=== PATIENT | male | born 1950 | race Hispanic/Latino ===

== ENCOUNTER 2024-08-09 17:20 | Inpatient (IN) | payer MEDICARE ==
[~2024-08-09] VITALS: Ht 180.3 cm; Wt 86.2 kg
--- NOTE | 2024-08-09 17:37 | ERN ---
ED Note History of Present Illness Stated Complaint: GENERALIZED WEAKNESS Chief Complaint: Weakness Time Seen by MD: 17:34 Time Seen by Midlevel: 17:35 Dictation: Mr. Salazar is a 74 year old gentleman with history of atrial fibrillation, pacemaker, hypertension, type II DM, anemia, cerebral palsy, and right sided weakness who presented to the Emergency Department this evening for evaluation of general body weakness. He just arrived by plane from [place] after his release from [employer]. He states he had been there x 20 months. He states that he has had > 100 pound weight loss. He states that he has been having melena, dizziness, fatigue, general weakness, and palpitations. He also reports lower extremity edema, shortness of breath, and itchy skin. He states that he has been receiving blood transfusions every 10-12 days (5 treatments). He states he has not yet seen any specialists and he does not know what is causing blood loss. He has not seen his PCP at [facility] in over 2 years. Allergies: Coded Allergies: No Known Drug Allergies (Unverified Allergy, Unknown, 08/09/24) Emergency Care DECAL MAKER: None Past Medical History Past Medical History: A-Fib, Anemia, Diabetes-Type II, Hypertension, Kidney Stone, Other (cerebral palsy) Surgical History: Pacer/AICD, Other (knee, foot) RN Note Reviewed/Agreed w/PFSH: Yes Review of System Dictation REVIEW OF SYSTEMS: CONSTITUTIONAL: Patient denies fevers, chills, or sweats Reports fatigue and general weakness. Reports > 100 lb weight loss in the past 20 months while incarcerated. EYES: Patient denies any visual symptoms. EARS, NOSE, AND THROAT: No difficulties with hearing. No symptoms of rhinitis or sore throat. CARDIOVASCULAR: Patient denies chest pains, orthopnea and paroxysmal nocturnal dyspnea. Reports rapid heart rate. Reports history of atrial fibrillation. Reports history of pacemaker. RESPIRATORY: No dyspnea on exertion, no wheezing or cough. GI: No nausea, vomiting, diarrhea, constipation, abdominal pain, hematochezia. Reports black stools. : No urinary hesitancy or dribbling. No nocturia or urinary frequency. No abnormal urethral discharge. MUSCULOSKELETAL: No myalgias or arthralgias. NEUROLOGIC: No chronic headaches, no seizures. Patient denies numbness, tingling or weakness. PSYCHIATRIC: Patient denies problems with mood disturbance. No problems with anxiety. ENDOCRINE: No excessive urination or excessive thirst. DERMATOLOGIC: Patient denies any rashes or skin changes. Initial Vital Sign VS Vital Signs Date Time Temp Pulse Resp B/P (MAP) Pulse Ox O2 Delivery O2 Flow Rate FiO2 08/09/24 17:23 98.1 70 16 141/72 100 Room Air* 0 21 Physical Exam Dictation Vital signs: Reviewed. Afebrile Constitutional: No acute distress. Non-toxic appearing. Pleasant. Family at bedside Head/Face: Normocephalic, atraumatic. Eyes: Periorbital areas with no swelling, redness, or edema. Lids and lashes are normal. Conjunctival injection is absent. Sclera anicteric. Pupils equal, round, reactive to light. ENT: Pinnas intact and no signs of trauma or erythema. Ear canals clear and no discharge. TMs no erythema. No nasal discharge or bleeding noted. Oropharynx with no exudate, redness, swelling, masses, exudates, or evidence of obstructio n. Uvula midline. Mucous membranes moist. Neck: Trachea midline, no masses palpated, and no cervical lymphadenopathy. No swelling. Supple, full range of motion. Chest/Axilla: No tenderness, no crepitus, no paradoxical movement, no retractions. Cardiovascular: Regular rate, regular rhythm, no murmur, no gallops. Symmetric pulses. 1+ edema bilateral lower extremities Respiratory: Respirations even and unlabored. Lung sounds clear; no wheezes, rales or rhonchi. Room air SpO2 98% Gastrointestinal: Inspection is normal. No distention is appreciated. Bowel sounds are normal. No mass or organomegaly . There is no tenderness. No rebound. No rigidity. No voluntary or involuntary guarding. No Odell's sign. Neurological: Normal speech, gross motor function intact, gross sensory function intact. Right-sided weakness per baseline. Musculoskeletal/Extremities: All extremities have full range of motion, no pain or tenderness on palpation. Symmetric pulses. Integumentary: Intact. Skin is , warm and dry. Cap refill less than 3 seconds. Results (Laboratory/Radiology) Laboratory/Radiology Laboratory Tests Test 08/09/24 17:55 08/09/24 18:14 White Blood Count 7.2 K/uL (4.8-10.8) Red Blood Count 2.90 MIL/uL (4.50-6.20) L Hemoglobin 7.9 g/dL (14.0-18.0) L Hematocrit 25.0 % (42-54) L Mean Corpuscular Volume 86.2 fL (79-99) Mean Corpuscular Hemoglobin 27.2 pg (27.0-33.0) Mean Corpuscular Hemoglobin Concent 31.6 g/dL (32.0-36.0) L Red Cell Distribution Width 16.3 % (11.0-15.5) H Platelet Count 219 K/uL (130-400) Mean Platelet Volume 9.9 fL (7.5-10.5) Immature Granulocyte % (Auto) 0.4 % (0-1) Neutrophils (%) (Auto) 70.0 % (40.0-77.0) Lymphocytes (%) (Auto) 18.8 % (21.0-51.0) L Monocytes (%) (Auto) 8.3 % (3.0-13.0) Eosinophils (%) (Auto) 2.1 % (0.0-8.0) Basophils (%) (Auto) 0.4 % (0.0-5.0) Neutrophils # (Auto) 5.0 K/uL (1.8-7.7) Lymphocytes # (Auto) 1.4 K/uL (1.0-4.8) Monocytes # (Auto) 0.6 K/uL (0.1-1.0) Eosinophils # (Auto) 0.15 K/uL (0.00-0.70) Basophils # (Auto) 0.03 K/uL (0.00-0.20) Absolute Immature Granulocyte (auto 0.03 K/uL (0-1) Nucleated Red Blood Cells 0.0 % (0.0-0.19) Reticulocyte Count (auto) 3.24382 % (0.42-2.23) H Immature Reticulocyte Fraction 27.20 % (0.18-0.48) H Prothrombin Time 12.2 SEC (9.6-11.6) H Prothromb Time International Ratio 1.17 (0.85-1.15) H Activated Partial Thromboplast Time 28.2 SEC (26.3-35.5) Sodium Level 141 mmol/L (136-145) Potassium Level 3.6 mmol/L (3.5-5.1) Chloride Level 105 mmol/L (101-111) Carbon Dioxide Level 27 mmol/L (21-32) Blood Urea Nitrogen 21 mg/dL (7-18) H Creatinine 1.2 mg/dL (0.5-1.3) Glomerular Filtration Rate Calc 63 mL/min (>90) Random Glucose 122 mg/dL (70-105) H Total Calcium 8.4 mg/dL (8.5-10.1) L Iron Level 27 mcg/dL (65-175) L Total Iron Binding Capacity 294 mcg/dL (250-450) Percent Iron Saturation 9.1 % (30-44) L Ferritin 36 ng/mL (30-400) Total Bilirubin 0.8 mg/dL (0.2-1.0) Aspartate Amino Transf (AST/SGOT) 12 U/L (10-37) Alanine Aminotransferase (ALT/SGPT) 8 U/L (12-78) L Alkaline Phosphatase 148 U/L (50-136) H Troponin I High Sensitivity 10 ng/L (4-75) B-Type Natriuretic Peptide 114 pg/mL (0-100) H Total Protein 7.5 g/dL (6.0-8.3) Albumin 2.7 g/dL (3.5-5.0) L Vitamin B12 Level 422 pg/mL (193-986) Stool Occult Blood POSITIVE (NEGATIVE) H Labs Reviewed?: Yes EKG Comment: EKG Interpretation: Time Reviewed: 1921 Ventricular rate: [69] bpm CA Interval: [] 196ms QRS duration: [147] ms No ST segment elevation or depression. Clinical impression: Ventricular paced rhythm EKG Reviewed and interpreted by Dr. Nany Nelson ED Course ED Course Orders Procedure Category Date Status Time 12 Lead Ekg Tracing- EKG 08/09/24 Complete Technical 17:36 Troponin I High LAB 08/09/24 Complete Sensitivity 17:36 Cbc With Differential LAB 08/09/24 Complete 17:36 Comprehensive LAB 08/09/24 Complete Metabolic Panel 17:36 Urinalysis Profile LAB 08/09/24 Logged 17:36 B-Type Natriuretic LAB 08/09/24 Complete Peptide 17:36 Type And Screen BBK 08/09/24 Complete 17:36 Saline Lock Iv CPOE 08/09/24 Transmitted 17:36 Pt And Ptt LAB 08/09/24 Complete 17:49 Anemia Panel LAB 08/09/24 Complete 17:49 Occult Blood Stool LAB 08/09/24 Complete Single Only 17:49 Pantoprazole 40mg Inj PHA 08/09/24 In Process (Protonix 40mg Inj 20:00 Current Medications Medications (Trade) Dose Ordered Sig/Tracy Route PRN Reason Start Time Stop Time Status Last Admin Dose Admin Pantoprazole Sodium (PROTonix 40MG INJ) 40 mg ONCE IVP 08/09/24 20:00 08/09/24 23:59 Vital Signs Date Time Temp Pulse Resp B/P (MAP) Pulse Ox O2 Delivery O2 Flow Rate FiO2 08/09/24 19:37 98.6 68 14 132/68 100 Room Air* 0 21 08/09/24 17:23 98.1 70 16 141/72 100 0 08/09/24 17:23 98.1 70 16 141/72 100 Room Air* 0 21 Uneventful ED course. Patient is pleasant and cooperative. He complains of dyspnea on exertion. Twelve lead EKG reflects a ventricular paced rhythm; rate 69. No acute ST-T changes. Laboratory findings as noted below. H/H 7.9/25, BUN 21, glucose 122, Ca 8.4, ALP 148, BNP 114, albumin 2.7, PT/PTT 12.2/1.17. Stool guaiac is positive. While in the ED he received dose Protonix. Findings were discussed with KEANU Lucas who accepts patient for admission to hospitalist group. Medical Decision Making MDM MDM: Differential diagnosis: Medical anemia, fluid volume overload, uncontrolled AFib, GIB Rationale: Tests considered and ordered secondary to shared decision making include: labs, ECG and radiology Previous outside records reviewed: Old ER visits. Risk of complication and/or morbidity or mortality of patient management: None Medications-Per medication reconciliation Need for hospitalization: Patient does meet criteria for hospitalization. Need for emergency major/minor surgery: No There are no social concerns with this patient. Prescription drug management Prescriptions will include symptomatic care Patient's prior external medical records from other ER visits were reviewed by me as indicated. Prior testing and results from previous visits were reviewed. Prior tests were taken into account with medical decision making and resource utilization, independent historian/historians were used to obtain complete med ica history. I independently interpreted the test that were performed, results were reviewed by me and considered findings on radiology if ordered. Medical management and examination interpretation discussions were had by me with other qualified healthcare professionals as indicated for the patient's care. DX & DISP Disposition: Inpatient Departure Impression: Primary Impression: Melena Additional Impressions: Symptomatic anemia, CHF (congestive heart failure) Condition: Stable Assign Patient to: Dr. Wilbert Kennedy Referrals: DILLON GUILLEN DO (PCP) RANDALL THOMAS NP August 09, 2024 17:37
[2024-08-09 18:07] LABS: BASOPHILS # (AUTO) 0.03 K/uL (0.00-0.20); BASOPHILS % (AUTO) 0.4 % (0.0-5.0); EOSINOPHILS # (AUTO) 0.15 K/uL (0.00-0.70); EOSINOPHILS % (AUTO) 2.1 % (0.0-8.0); IMMATURE GRANULOCYTE ABSOLUTE 0.03 K/uL (0-1); LYMPHOCYTES # (AUTO) 1.4 K/uL (1.0-4.8); LYMPHOCYTES % (AUTO) 18.8 % (21.0-51.0); MEAN CORPUSCULAR HEMOGLOBIN 27.2 pg (27.0-33.0); MEAN CORPUSCULAR HGB CONC 31.6 g/dL (32.0-36.0); MEAN CORPUSCULAR VOLUME 86.2 fL (79-99); MONOCYTES # (AUTO) 0.6 K/uL (0.1-1.0); MONOCYTES % (AUTO) 8.3 % (3.0-13.0); PLATELET COUNT (AUTO) 219 K/uL (130-400); RED CELL DISTRIBUTION WIDTH 16.3 % (11.0-15.5); WHITE BLOOD COUNT (AUTO) 7.2 K/uL (4.8-10.8)
[2024-08-09 18:10] LABS: RETICULOCYTE % (AUTO) 3.14 % (0.42-2.23)
[2024-08-09 18:16] LABS: CREATININE 1.2 mg/dL (0.5-1.3); POTASSIUM 3.6 mmol/L (3.5-5.1)
[2024-08-09 18:18] LABS: INR 1.17 (0.85-1.15); PROTHROMBIN TIME 12.2 SEC (9.6-11.6)
[2024-08-09 18:19] LABS: PARTIAL THROMBOPLASTIN TIME 28.2 SEC (26.3-35.5)
[2024-08-09 18:25] LABS: ALBUMIN 2.7 g/dL (3.5-5.0); BILIRUBIN,TOTAL 0.8 mg/dL (0.2-1.0); TOTAL PROTEIN, SERUM 7.5 g/dL (6.0-8.3)
[2024-08-09 18:48] LABS: % IRON SATURATION 9.1 % (30-44)
[2024-08-09 18:55] LABS: B-TYPE NATRIURETIC PEPTIDE 114 pg/mL (0-100)
--- NOTE | 2024-08-09 19:27 | EKG ---
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
--- NOTE | 2024-08-09 20:34 | HP ---
History of Present Illness Reason for Visit: weakness History of Present Illness Mr. Salazar is a 74-year-old male that was seen and examined today on 08/09/2024. Patient is a good historian of personal health patient's daughter Stacey is at bedside. Patient states that he came to the emergency department with a chief complaint of melena. Onset was three months ago. Patient thinks it is because of a remote ERCP that he had. Location is rectal. Duration is on and off. Character is described as black stool. Symptoms are aggravated with defecation. There was no alleviating factors. Patient reports associated weakness. Today in the emergency department hemoglobin 7.9, hematocrit 25.0, no urinalysis has been collected or sent to lab, stool sample was positive for occult blood. Emergency room physician recommended that patient be admitted with a diagnosis of GI bleed. Patient also relates that it was just discharged from a retirement in [place] and he had a colonoscopy two weeks ago and he was told he probably has cancer. Patient does not know what medications he was taking while he was in retirement. Past Medical History ADDITIONAL PAST MEDICAL HISTORY: [Atrial fibrillation, anemia, Diabetes mellitius type2, hypertension, cerebral palsy] SOCIAL HISTORY: [Negative for smoking, alcohol use, drug use. Patient is currently living with his daughter.] SURGICAL HISTORY: [AICD, left ankle surgery, ERCP] Review of Systems General: No Fever, No Chills, No Night Sweats, No Fatigue, No Malaise, No Appetite, No Other HEENT: No Head Aches, No Visual Changes, No Eye Pain, No Ear Pain, No Dysphasia, No Sinus Congestion, No Post Nasal Drip, No Sore Throat, No Other Pulmonary: No Dyspnea, No Cough, No Pleuritic Chest Pain, No Other Cardiovascular: No: Chest Pain, Palpitations, Orthopnea, Paroxysmal Noc. Dyspnea, Edema, Lt Headedness, Other Gastrointestinal: Melena; No: Nausea, Vomiting, Abdominal Pain, Diarrhea, Constipation, Hematochezia, Other Genitourinary: No Dysuria, No Frequency, No Incontinence, No Hematuria, No Retention, No Other Musculoskeletal: No: other, neck pain, shoulder pain, arm pain, back pain, hand pain, leg pain, foot pain Skin: No Urticaria, No Rash, No Other Neurological: Weakness; No: Numbness, Incoordination, Change in speech, Confusion, Seizures, Other Allergies: Coded Allergies: No Known Drug Allergies (Unverified Allergy, Unknown, 08/09/24) Exam Vital Signs Vital Signs Date Time Temp Pulse Resp B/P (MAP) Pulse Ox O2 Delivery O2 Flow Rate FiO2 08/09/24 19:37 98.6 68 14 132/68 100 Room Air* 0 21 General Appearance: Alert, Oriented X3, Cooperative, No acute distress HEENT: Atraumatic, EOMI Respiratory: Clear to auscultation, Normal air movement, NL respiratory effort Cardiovascular: Regular rate, Regular rhythm, Normal S1, Normal S2 Abdominal: Normal bowel sounds, Soft, No tenderness Extremities: Other (Positive weakness to bilateral lower extremities) Skin: Other (Left anterior tibial abrasion) Neuro: Normal speech, Strength at 5/5 X4 ext, Sensation intact, Cranial nerves 3-12 NL Psych/Mental Status: Mental status NL, Mood NL, Thoughts/Content NL Assessment/Plan ASSESSMENT: [ GI bleed, POA Normocytic anemia, POA Atrial fibrillation Diabetes mellitius type2 Hypertension Cerebral palsy] PLAN: [ Admit patient to medical floor as inpatient status. Place patient on telemetry monitoring. Patient will be followed by Gastroenterology Service. Protonix 40 mg IV times. Continue Protonix drip per hospital protocol. Sandostatin 50 mcg IV times. Sandostatin drip per hospital protocol. Keep patient NPO. Hemoglobin and hematocrit every 6 hours Check preprocedure labs, CBC, BMP, magnesium, phosphorus, PTT, UA, type and screen, EKG, CXR IV fluid maintenance therapy 0.9% NS at 100 mL/HR Consider resuming home medications once they have been reconciled For now, metoprolol 12.5 mg by mouth twice daily Administer metoprolol 5 mg IV every 5 minutes as needed for AFib RVR with heart rate greater than 120 beats per minute max three doses. Check iron panel, follow up with the results Check serum ferritin, follow up with the results Check LDH, reticulocyte count, peripheral smear, follow up with the results Monitor labs Transfuse packed red blood cells for hemoglobin less than 7 mg/dL Check hemoglobin A1c in a.m. Glucometer checks a.c. and HS 1800 ADA diet Humulin R sliding scale Hydralazine 10 mg IV every 4 hours for systolic blood pressure greater than 160 mmHg Fall precautions GI prophylaxis patient is on Protonix drip as mentioned above DVT prophylaxis, Grant's and SCDs avoid anticoagulation at this time due to GI bleed. ADVANCED CARE PLANNING 1. Which of the following were discussed? Hospice Care - Yes Therapeutic options - Yes Advance Directives - Yes -patient states he does not have any advance directives in place at this time, however his daughter can make decisions for him if he becomes unable. Other discussions - patient wishes to remain a full code at this time 2. Discussed with who? Patient 3. Voluntary nature of this service was explained to the patient? Yes 4. Amount of time spent - __ 16 minutes 5. Reviewed by Physician? (if this service was performed by NPP) Yes This document was generated in part using voice recognition software, occasional wrong word or sound alike substitutions may have occurred due to the inherent limitations of voice recognition software. Read the chart carefully and recognize using context, where the substitutions have occurred. Although every effort was made to edit the content, wallcovering hanger and typing errors may occur ATTESTATION BY PHYSICIAN I have seen and examined the patient. I reviewed the documentation, medical decision making, and treatment plan as noted by the mid-level provider above. I agree with the findings and plan of care. NIELS TANG [facility] August 09, 2024 20:34
[2024-08-09] MEDS: PANTOPrazole 40 MG/VIAL IVP SCH (20:56)
[2024-08-09] MEDS: 0.9%NACL 1000ML 1,000 ML IV SCH (20:56)
[2024-08-09] MEDS: octREOtide aceTATe 100 MCG/ML AMP IV ONE (20:56)
[2024-08-09] MEDS: octREOtide aceTATe 1,250 MCG in 0.9% NACL 250ML 250 ML IV SCH (21:18)
[2024-08-09] MEDS: PANTOPrazole 40MG INJ 80 MG in 0.9%NACL 100ML 100 ML IV SCH (21:18)
--- NOTE | 2024-08-09 21:30 | HMCIMG ---
PORTABLE CHEST RADIOGRAPH INDICATION: sob COMPARISON: 04/16/2016 FINDINGS: cilnical scientist leads overlie the field of view. Left sided single chamber pacer and continuous lead remain in customary position. Heart size is normal. The pulmonary vascularity and adriane appear normal. No abnormal pulmonary parenchymal opacity or consolidation identified. No significant pleural effusion noted. No pneumothorax detected. IMPRESSION: No radiographic evidence for any acute cardiopulmonary process.
[2024-08-09] MEDS ORDERED: PHARMACY COMMUNICATION MISC SCH (22:00)
[2024-08-09] MEDS ORDERED: ondanSETRON 4MG INJ IV PRN (22:00)
[2024-08-09] MEDS ORDERED: metoPROLOL tartRATE 1 MG/ML 5ML VIAL IV PRN (22:00)
[2024-08-09] MEDS ORDERED: hydrALAZine 20MG/ML VIAL IV PRN (22:00)
[2024-08-09] MEDS ORDERED: morPHINE 2 MG SYG IVP PRN (22:00)
[2024-08-09] MEDS ORDERED: acetaMINOPHEN 325 MG TAB PO PRN (22:00)
--- NOTE | 2024-08-09 22:29 | NUR ---
REPORT GIVEN TO NURSE HERNANDEZ
[2024-08-09 23:00] VITALS: O2SAT 100
[2024-08-10] VITALS (7 sets, daily range): BP systolic 102–161; BP diastolic 60–83; PULSE 69–74; RESP 17–20; TEMP 97.6–98.7; O2SAT 97–100
[2024-08-10] MEDS ORDERED: PoTASSium chl 10% ELIXIR 20MEQ 20 MEQ/15 ML UDCUP PO PRN (00:30)
[2024-08-10] MEDS ORDERED: PoTASSium chloRIDE 20MEQ/100ML 100 ML IV PRN (00:30)
[2024-08-10] MEDS ORDERED: MAGNESIUM 2GM PREMIX 50ML 50 ML IV PRN (00:30)
[2024-08-10 05:52] LABS: APPEARANCE,URINE CLEAR (CLEAR); BILIRUBIN,URINE NEGATIVE (NEGATIVE); COLOR,URINE YELLOW (YELLOW); GLUCOSE, URINE (UA) NEGATIVE (NEGATIVE); KETONES,URINE NEGATIVE (NEGATIVE); LEUKOCYTE ESTERASE ,URINE NEGATIVE Leu/uL (NEGATIVE); NITRATE,URINE NEGATIVE (NEGATIVE); OCCULT BLOOD,URINE NEGATIVE (NEGATIVE); PH,URINE 5.5 (5.0-8.0); PROTEIN,URINE 10 mg/dL (NEGATIVE)
[2024-08-10 05:59] LABS: ADD UA MICROSCOPIC NO
[2024-08-10 06:01] LABS: BACTERIA,URINE FEW /HPF (None Seen); MUCUS,URINE RARE LPF (None Seen); RBC,URINE 0-1 /HPF (0-1); SQUAMOUS EPITHELIAL CELL,UR RARE /HPF (0-2); WBC,URINE 0-1 /HPF (0-1)
[2024-08-10] MEDS: INSULIN humuLIN R 100 UNIT/ML 3ML SQ SCH (07:30)
[2024-08-10] MEDS ORDERED: COMPOUND IV REFRIGERATED 1 EACH IVSOLN MISC PRN (08:00)
[2024-08-10 08:03] LABS: BASOPHILS # (AUTO) 0.03 K/uL (0.00-0.20); BASOPHILS % (AUTO) 0.6 % (0.0-5.0); EOSINOPHILS # (AUTO) 0.12 K/uL (0.00-0.70); EOSINOPHILS % (AUTO) 2.4 % (0.0-8.0); HEMATOCRIT 25.2 % (42-54); IMMATURE GRANULOCYTE ABSOLUTE 0.02 K/uL (0-1); LYMPHOCYTES # (AUTO) 1.1 K/uL (1.0-4.8); LYMPHOCYTES % (AUTO) 21.3 % (21.0-51.0); MEAN CORPUSCULAR HEMOGLOBIN 26.5 pg (27.0-33.0); MEAN CORPUSCULAR HGB CONC 30.6 g/dL (32.0-36.0); MEAN CORPUSCULAR VOLUME 86.6 fL (79-99); MONOCYTES # (AUTO) 0.4 K/uL (0.1-1.0); MONOCYTES % (AUTO) 8.7 % (3.0-13.0); NEUTROPHILS # (AUTO) 3.3 K/uL (1.8-7.7); NEUTROPHILS % (AUTO) 66.6 % (40.0-77.0); PLATELET COUNT (AUTO) 184 K/uL (130-400); RED BLOOD CELL COUNT(AUTO) 2.91 MIL/uL (4.50-6.20)
[2024-08-10 08:19] LABS: CREATININE 1.1 mg/dL (0.5-1.3); MAGNESIUM 1.8 mg/dL (1.80-2.40); PHOSPHORUS 3.5 mg/dL (2.5-4.9); POTASSIUM 3.9 mmol/L (3.5-5.1)
[2024-08-10 09:01] LABS: HEMOGLOBIN A1C 5.2 % (4.0-6.0)
[2024-08-10] MEDS: metoPROLOL tartRATE 25 MG TAB PO SCH (10:06)
[2024-08-10 12:34] LABS: HEMATOCRIT 28.1 % (42-54)
--- NOTE | 2024-08-10 13:05 | NUR ---
DCP: INITIAL ASSESSMENT Patient was just released from senior care as per daughter. He will go live with his daughter, Rola Salazar. Patient has no home services. Patient does have a wheelchair at home. Patient needs help with ADLs and has not driven. His family will assist with transportation. PCP is Dr. Ayesha Sahu. Pharmacy is [facility] [address] in [place]. Patient voiced no safety concerns regarding returning home and states she has no difficulty with housing or buying food. DCP is home. Patient has no insurance or benefits. He was provided with community resources for post hospitalization follow up. Patient was also provided with Good RX card for prescriptions and educated on [facility] $4 medication program and [facility] $5 medication program. Patient is being assisted by [facility] for financial matters. Addendum: 08/10/24 at 1309 by DINA JORDAN SS Amended: Links added.
--- NOTE | 2024-08-10 17:28 | NUR ---
CALLED RESIDENTIAL IN [place], [place] TO TRY AND OBTAIN MEDICAL RECORDS FOR PATIENT. PER ANSWERING SERVICE, MEDICAL RECORDS ARE ONLY AVAILABLE MONDAY THROUGH MONDAY BEFORE 5PM. UNABLE TO OBTAIN MEDICATION OR MEDICAL RECORDS AT THIS TIME. Addendum: 08/10/24 at 1733 by LANI TANG RN RN [facility] PHONE NUMBER [id number] BY DAUGHTER AND CALLED WAS
[2024-08-10 18:05] LABS: HEMATOCRIT 27.7 % (42-54)
--- NOTE | 2024-08-10 18:35 | PN ---
[facility] PROGRESS NOTE Date of Service: August 10, 2024 Time of Service: 18:29 SUBJECTIVE: [ 74-year-old male that was seen and examined today on 08/09/2024. Patient is a good historian of personal health patient's daughter Stacey is at bedside. Patient states that he came to the emergency department with a chief complaint of melena. Onset was three months ago. Patient thinks it is because of a remote ERCP that he had. Location is rectal. Duration is on and off. Character is described as black stool. Symptoms are aggravated with defecation. There was no alleviating factors. Patient reports associated weakness. Today in the emergency department hemoglobin 7.9, hematocrit 25.0, no urinalysis has been collected or sent to lab, stool sample was positive for occult blood. Emergency room physician recommended that patient be admitted with a diagnosis of GI bleed. Patient also relates that it was just discharged from a [facility] in [place] and he had a colonoscopy two weeks ago and he was told he probably has cancer. Patient does not know what medications he was taking while he was in fci. 08/10/24 : Patient seen and examined along with RN. No new complaints. Pending formal GI consult plan for EGD today or tomorrow. Patient is currently on Protonix and Sandostatin drip. As per patient family he had a colonoscopy about three weeks back we will try to get the record. REVIEW OF SYSTEMS CONSTITUTIONAL: Denies fevers, chills, or night sweats. No unintentional weight loss reported. NEUROLOGICAL: Denies headache, amaurosis fugax, motor weakness, sensory deficit, vertigo/spinning sensation, gait abnormalities, or tremors. ENT: No hearing loss, otalgia, otorrhea, rhinitis, rhinorrhea, hoarseness, or sore throat. CARDIOVASCULAR: Denies any exertional angina, dyspnea on exertion, orthopnea, paroxysmal nocturnal dyspnea, palpitations, life-threatening arrhythmias, claudication. PULMONARY: Denies any shortness of breath, cough, phlegm/sputum, hemoptysis, pleuritic chest pain. SLEEP: Denies morning headaches, daytime somnolence or napping. Denies difficulty falling asleep, staying asleep, waking from sleep. Denies knowledge of snoring. GASTROINTESTINAL: Denies any type of dysphagia to either liquids or solids. Denies nausea, vomiting, pyrosis, early satiety, abdominal pain, diarrhea, constipation, or changes in stool consistency or caliber. Denies coffee-ground emesis, hematemesis, hematochezia, or melanotic stools. GENITOURINARY: Denies frequency, urgency, nocturia, hematuria or incontinence (Storage/Irritative symptoms.) Low urinary stream, straining to void, urinary intermittency or hesitancy, splitting of the voiding stream, terminal dribbling. ENDOCRINOLOGIC: Denies polyuria, polydipsia, polyphagia or heat/cold intolerances. HEMATOLOGIC: Denies thrombophilia/previous clots, or coagulopathy/bleeding disorders. ONCOLOGIC: Denies personal history of malignancy. DERMATOLOGIC: Denies rashes or pruritus. PSYCHIATRIC: Denies any suicidal or homicidal ideation. Denies hallucinations. PHYSICAL EXAM GENERAL APPEARANCE: The patient is awake, alert, and oriented, in no acute cardiopulmonary distress. NEUROLOGICAL: Cranial nerves II-XII grossly intact. Motor is 5/5 in bilateral upper and lower extremities proximal to distal. No sensory deficits. HEENT: Face is symmetric. Pupils are equal and reactive. Extraocular movements are intact. NECK: Supple. No JVD. No thyromegaly. No submental, submandibular, pre- /postauricular, occipital or supraclavicular lymphadenopathy. CHEST: Normal chest expansion. No Telemetry. LUNGS: Absence of any rales, rhonchi or any wheezing. CARDIOVASCULAR: Regular. S1 and S2 normal. No appreciable rubs, murmurs or gallops. ABDOMEN: Soft, nontender, and nondistended. There is no rebound, voluntary guarding, or rigidity. : Deferred. No Shaw. EXTREMITIES: Non-edematous and not cyanotic. No clubbing. Good capillary refill. SKIN: No skin breakdown. Vital Signs (last 8hr) Date Time Temp Pulse Resp B/P (MAP) Pulse Ox O2 Delivery O2 Flow Rate FiO2 08/10/24 16:00 98.4 74 18 134/66 100 Nasal Cannula 08/10/24 12:00 98.2 74 18 141/74 98 Room Air LABS: Laboratory: Test 08/10/24 17:57 08/10/24 15:56 08/10/24 07:40 08/10/24 05:29 Range/Units Hemoglobin 8.4 L 14.0-18.0 g/dL Hematocrit 27.7 L 42-54 % Whole Blood Glucose 102 70-110 MG/DL White Blood Count 5.0 # 4.8-10.8 K/uL Red Blood Count 2.91 L 4.50-6.20 MIL/uL Mean Corpuscular Volume 86.6 79-99 fL Mean Corpuscular Hemoglobin 26.5 L 27.0-33.0 pg Mean Corpuscular Hemoglobin Concent 30.6 L 32.0-36.0 g/dL Red Cell Distribution Width 16.0 H 11.0-15.5 % Platelet Count 184 130-400 K/uL Mean Platelet Volume 9.9 7.5-10.5 fL Immature Granulocyte % (Auto) 0.4 0-1 % Neutrophils (%) (Auto) 66.6 40.0-77.0 % Lymphocytes (%) (Auto) 21.3 21.0-51.0 % Monocytes (%) (Auto) 8.7 3.0-13.0 % Eosinophils (%) (Auto) 2.4 0.0-8.0 % Basophils (%) (Auto) 0.6 0.0-5.0 % Neutrophils # (Auto) 3.3 1.8-7.7 K/uL Lymphocytes # (Auto) 1.1 1.0-4.8 K/uL Monocytes # (Auto) 0.4 0.1-1.0 K/uL Eosinophils # (Auto) 0.12 0.00-0.70 K/uL Basophils # (Auto) 0.03 0.00-0.20 K/uL Absolute Immature Granulocyte (auto 0.02 0-1 K/uL Nucleated Red Blood Cells 0.0 0.0-0.19 % Red Blood Cell Morphology See comments Sodium Level 142 136-145 mmol/L Potassium Level 3.9 3.5-5.1 mmol/L Chloride Level 109 101-111 mmol/L Carbon Dioxide Level 25 21-32 mmol/L Blood Urea Nitrogen 19 H 7-18 mg/dL Creatinine 1.1 0.5-1.3 mg/dL Glomerular Filtration Rate Calc 70 >90 mL/min Random Glucose 112 H 70-105 mg/dL Hemoglobin A1c 5.2 4.0-6.0 % Estimated Average Glucose (eAG) 103 70-126 mg/dL Total Calcium 8.0 L 8.5-10.1 mg/dL Phosphorus Level 3.5 2.5-4.9 mg/dL Magnesium Level 1.80 1.80-2.40 mg/dL Lactate Dehydrogenase 103 81-234 U/L Urine Color YELLOW YELLOW Urine Appearance CLEAR CLEAR Urine pH 5.5 5.0-8.0 Urine Specific [place] 1.021 1.001-1.031 Urine Protein 10 H NEGATIVE mg/dL Urine Glucose (UA) NEGATIVE NEGATIVE mg/dL Urine Ketones NEGATIVE NEGATIVE mg/dL Urine Occult Blood NEGATIVE NEGATIVE Urine Nitrate NEGATIVE NEGATIVE Urine Bilirubin NEGATIVE NEGATIVE mg/dL Urine Urobilinogen 4.0 H 0.2-1.0 mg/dL Urine Leukocyte Esterase NEGATIVE NEGATIVE Bassam/uL Urine RBC 0-1 0-1 /HPF Urine WBC 0-1 0-1 /HPF Urine Squamous Epithelial Cells RARE 0-2 /HPF Urine Bacteria FEW None Seen /HPF Test 08/09/24 18:14 08/09/24 17:55 Range/Units Stool Occult Blood POSITIVE H NEGATIVE Reticulocyte Count (auto) 3.44371 H 0.42-2.23 % Immature Reticulocyte Fraction 27.20 H 0.18-0.48 % Prothrombin Time 12.2 H 9.6-11.6 SEC Prothromb Time International Ratio 1.17 H 0.85-1.15 Activated Partial Thromboplast Time 28.2 26.3-35.5 SEC Iron Level 27 L 65-175 mcg/dL Total Iron Binding Capacity 294 250-450 mcg/dL Percent Iron Saturation 9.1 L 30-44 % Ferritin 36 30-400 ng/mL Total Bilirubin 0.8 0.2-1.0 mg/dL Aspartate Amino Transf (AST/SGOT) 12 10-37 U/L Alanine Aminotransferase (ALT/SGPT) 8 L 12-78 U/L Alkaline Phosphatase 148 H 50-136 U/L Troponin I High Sensitivity 10 4-75 ng/L B-Type Natriuretic Peptide 114 H 0-100 pg/mL Total Protein 7.5 6.0-8.3 g/dL Albumin 2.7 L 3.5-5.0 g/dL Vitamin B12 Level 422 193-986 pg/mL Current Medications Medications (Trade) Dose Ordered Sig/Tracy Route PRN Reason Start Time Stop Time Status Last Admin Dose Admin Acetaminophen (TYLenol 325MG TAB) 650 mg Q6H PRN PO TEMPERATURE GREATER THAN 101.5 08/09/24 22:00 09/08/24 21:59 Hydralazine HCl (APRESOLine 20MG INJ) 10 mg Q6H PRN IV For:SBP above 160;DBP above 90 08/09/24 22:00 09/08/24 21:59 Insulin Human Regular (humuLIN R 100 UNIT/ML 3ML) INSULIN SLIDING SCAL... ACHS SQ 08/10/24 07:30 09/09/24 07:29 Magnesium Sulfate 50 ml @ 0 mls/hr PROTOCOL PRN IV h 08/10/24 00:30 09/09/24 00:29 Metoprolol Tartrate (loprESSOR) 5 mg Q5M PRN IV AFIB RVR > 120 BPM 08/09/24 22:00 Metoprolol Tartrate (loprESSOR) 12.5 mg BID PO 08/10/24 09:00 09/09/24 08:59 08/10/24 10:06 12.5 MG Morphine Sulfate (morPHINE 2MG SYG) 2 mg Q4H PRN IVP SEVERE PAIN (7-10) 08/09/24 22:00 08/16/24 21:59 Octreotide Acetate 1250 mcg/ Sodium Chloride 250 ml @ 0 mls/hr PROTOCOL IV 08/09/24 20:30 09/08/24 20:29 08/09/24 21:18 5 MLS/HR Ondansetron HCl (zoFRAN 4MG INJ) 4 mg Q6H PRN IV NAUSEA/VOMITING 08/09/24 22:00 09/08/24 21:59 Pantoprazole Sodium (PROTonix 40MG INJ) 40 mg ONCE IVP 08/09/24 20:00 08/09/24 23:59 DC 08/09/24 20:56 40 MG Pantoprazole Sodium 80 mg/ Sodium Chloride 100 ml @ 10 mls/hr Q10H IV 08/09/24 20:30 09/08/24 20:29 08/10/24 16:58 10 MLS/HR Pharmacy Profile Note (Pharmacy Communication) 1 each ONCE MISC 08/09/24 22:00 08/10/24 11:33 DC Potassium Chloride 100 ml @ 100 mls/hr AD PRN IV POTASSIUM PROTOCOL 08/10/24 00:30 09/09/24 00:29 Potassium Chloride (K-Dur/Klor-Con 20meq) 20 meq AD PRN PO POTASSIUM PROTOCOL 08/10/24 00:30 09/09/24 00:29 Potassium Chloride (KCl 10% Elixir 20meq/15ml) 20 meq AD PRN PO POTASSIUM PROTOCOL 08/10/24 00:30 09/09/24 00:29 Sodium Chloride 1,000 ml @ 100 mls/hr Q10H IV 08/09/24 20:30 09/08/24 20:29 08/10/24 16:59 100 MLS/HR DIAGNOSTICS / RADIOLOGY: [ ] ASSESSMENT: [ GI bleed, POA Normocytic anemia, POA Atrial fibrillation poa Diabetes mellitius type2 Hypertension Cerebral palsy] PLAN: [ Continue Protonix and Sandostatin drip. We will get imaging of CT abdomen and pelvis with and without contrast as per patient patient was told that he has cancer was not sure. We will get record from the hospital where he had the colonoscopy. Follow GI consult. Keep patient NPO. Hemoglobin and hematocrit every 6 hours Check preprocedure labs, CBC, BMP, magnesium, phosphorus, PTT, UA, type and screen, EKG, CXR IV fluid maintenance therapy 0.9% NS at 100 mL/HR Consider resuming home medications once they have been reconciled For now, metoprolol 12.5 mg by mouth twice daily Administer metoprolol 5 mg IV every 5 minutes as needed for AFib RVR with heart rate greater than 120 beats per minute max three doses. Check iron panel, follow up with the results ] ROGE HER MD August 10, 2024 18:35
[2024-08-10] MEDS ORDERED: IOHEXOL-350 75 ML VIAL IV ONE (18:42)
--- NOTE | 2024-08-10 19:17 | HMCIMG ---
CT ABDOMEN/PELVIS W/WO CONTRAS HISTORY: Abdominal pain COMPARISON: None TECHNIQUE: Multiple sequential axial images of the abdomen and pelvis were obtained from the dome of the diaphragm through symphysis pubis. Patient was not given contrast through intravenous route. Oral contrast was not given. FINDINGS: No pleural effusion is seen bilaterally. There is no evidence of parenchymal disease or pulmonary nodule of the visualized lower lungs. Degenerative changes of the thoracolumbar spine are present. The heart is not enlarged. There is periumbilical hernia with fat content. There is left ovarian cyst measuring 5.4 cm. The liver, spleen, adrenal glands and pancreas are unremarkable. There is no evidence of hydronephrosis bilaterally. No evidence of renal stone is seen. Fecal material is seen in the colon. There are normal size retroperitoneal and mesenteric lymph nodes. No ascites is seen. Atherosclerotic changes are present. Appendix is not well seen in the evaluation. There is diverticulosis. Pelvic sidewalls are symmetric bilaterally. Bladder is well distended without wall thickening. IMPRESSION: 1. Periumbilical hernia with fat content. No ascites. Left renal cyst measuring 5.[address] was performed with one or more following dose reduction techniques: automated exposure control, adjustment of the mA and kv according to patient's size, or use of a iterative reconstruction technique.
[2024-08-11] VITALS (7 sets, daily range): BP systolic 115–150; BP diastolic 57–83; PULSE 70–73; RESP 16–19; TEMP 97.6–98.6; O2SAT 70–100
[2024-08-11 00:59] LABS: HEMATOCRIT 24.6 % (42-54)
[2024-08-11 04:17] LABS: BASOPHILS # (AUTO) 0.04 K/uL (0.00-0.20); BASOPHILS % (AUTO) 0.7 % (0.0-5.0); EOSINOPHILS # (AUTO) 0.18 K/uL (0.00-0.70); EOSINOPHILS % (AUTO) 3.1 % (0.0-8.0); HEMATOCRIT 24.2 % (42-54); IMMATURE GRANULOCYTE ABSOLUTE 0.01 K/uL (0-1); LYMPHOCYTES # (AUTO) 1.1 K/uL (1.0-4.8); LYMPHOCYTES % (AUTO) 17.9 % (21.0-51.0); MEAN CORPUSCULAR HEMOGLOBIN 26.6 pg (27.0-33.0); MEAN CORPUSCULAR HGB CONC 30.6 g/dL (32.0-36.0); MEAN CORPUSCULAR VOLUME 87.1 fL (79-99); MONOCYTES # (AUTO) 0.5 K/uL (0.1-1.0); MONOCYTES % (AUTO) 8.4 % (3.0-13.0); NEUTROPHILS # (AUTO) 4.1 K/uL (1.8-7.7); NEUTROPHILS % (AUTO) 69.7 % (40.0-77.0); PLATELET COUNT (AUTO) 200 K/uL (130-400); RED BLOOD CELL COUNT(AUTO) 2.78 MIL/uL (4.50-6.20); RED CELL DISTRIBUTION WIDTH 16.1 % (11.0-15.5); WHITE BLOOD COUNT (AUTO) 5.9 K/uL (4.8-10.8)
[2024-08-11 04:29] LABS: ALBUMIN 2.2 g/dL (3.5-5.0); CREATININE 1.1 mg/dL (0.5-1.3); POTASSIUM 3.9 mmol/L (3.5-5.1); TOTAL PROTEIN, SERUM 6.4 g/dL (6.0-8.3)
[2024-08-11] MEDS: IRON sUCROse COMPLEX 300 MG in 0.9% NACL 250ML 250 ML IV ONE (12:24)
--- NOTE | 2024-08-11 13:18 | PN ---
[facility] PROGRESS NOTE Date of Service: August 11, 2024 Time of Service: 13:14 SUBJECTIVE: [ 74-year-old male that was seen and examined today on 08/09/2024. Patient is a good historian of personal health patient's daughter Stacey is at bedside. Patient states that he came to the emergency department with a chief complaint of melena. Onset was three months ago. Patient thinks it is because of a remote ERCP that he had. Location is rectal. Duration is on and off. Character is described as black stool. Symptoms are aggravated with defecation. There was no alleviating factors. Patient reports associated weakness. Today in the emergency department hemoglobin 7.9, hematocrit 25.0, no urinalysis has been collected or sent to lab, stool sample was positive for occult blood. Emergency room physician recommended that patient be admitted with a diagnosis of GI bleed. Patient also relates that it was just discharged from a alf in [place] and he had a colonoscopy two weeks ago and he was told he probably has cancer. Patient does not know what medications he was taking while he was in alf. 08/10/24 : Patient seen and examined along with RN. No new complaints. Pending formal GI consult plan for EGD today or tomorrow. Patient is currently on Protonix and Sandostatin drip. As per patient family he had a colonoscopy about three weeks back we will try to get the record. 08/11/2024. Patient was seen and examined along with RN. I was informed by the nursing staff that patient will not be getting EGD today. Transfer saturation shows 9% we will give IV Venofer. Patient continues to have black tarry stool. CT scan of the abdomen reviewed no signs of any mass or metastatic disease showing on the periumbilical hernia REVIEW OF SYSTEMS CONSTITUTIONAL: Denies fevers, chills, or night sweats. No unintentional weight loss reported. NEUROLOGICAL: Denies headache, amaurosis fugax, motor weakness, sensory deficit, vertigo/spinning sensation, gait abnormalities, or tremors. ENT: No hearing loss, otalgia, otorrhea, rhinitis, rhinorrhea, hoarseness, or sore throat. CARDIOVASCULAR: Denies any exertional angina, dyspnea on exertion, orthopnea, paroxysmal nocturnal dyspnea, palpitations, life-threatening arrhythmias, claudication. PULMONARY: Denies any shortness of breath, cough, phlegm/sputum, hemoptysis, pleuritic chest pain. SLEEP: Denies morning headaches, daytime somnolence or napping. Denies difficulty falling asleep, staying asleep, waking from sleep. Denies knowledge of snoring. GASTROINTESTINAL: Denies any type of dysphagia to either liquids or solids. Denies nausea, vomiting, pyrosis, early satiety, abdominal pain, diarrhea, constipation, or changes in stool consistency or caliber. Denies coffee-ground emesis, hematemesis, hematochezia, or melanotic stools. GENITOURINARY: Denies frequency, urgency, nocturia, hematuria or incontinence (Storage/Irritative symptoms.) Low urinary stream, straining to void, urinary intermittency or hesitancy, splitting of the voiding stream, terminal dribbling. ENDOCRINOLOGIC: Denies polyuria, polydipsia, polyphagia or heat/cold intolerances. HEMATOLOGIC: Denies thrombophilia/previous clots, or coagulopathy/bleeding disorders. ONCOLOGIC: Denies personal history of malignancy. DERMATOLOGIC: Denies rashes or pruritus. PSYCHIATRIC: Denies any suicidal or homicidal ideation. Denies hallucinations. PHYSICAL EXAM GENERAL APPEARANCE: The patient is awake, alert, and oriented, in no acute cardiopulmonary distress. NEUROLOGICAL: Cranial nerves II-XII grossly intact. Motor is 5/5 in bilateral upper and lower extremities proximal to distal. No sensory deficits. HEENT: Face is symmetric. Pupils are equal and reactive. Extraocular movements are intact. NECK: Supple. No JVD. No thyromegaly. No submental, submandibular, pre- /postauricular, occipital or supraclavicular lymphadenopathy. CHEST: Normal chest expansion. No Telemetry. LUNGS: Absence of any rales, rhonchi or any wheezing. CARDIOVASCULAR: Regular. S1 and S2 normal. No appreciable rubs, murmurs or gallops. ABDOMEN: Soft, nontender, and nondistended. There is no rebound, voluntary guarding, or rigidity. : Deferred. No Shaw. EXTREMITIES: Non-edematous and not cyanotic. No clubbing. Good capillary refill. SKIN: No skin breakdown. Vital Signs (last 8hr) Date Time Temp Pulse Resp B/P (MAP) Pulse Ox O2 Delivery O2 Flow Rate FiO2 08/11/24 11:55 98.2 73 16 150/75 99 Room Air 08/11/24 07:43 97.7 70 17 115/58 100 Room Air LABS: Laboratory: Test 08/11/24 05:31 08/11/24 03:41 08/10/24 07:40 08/10/24 05:29 Range/Units Whole Blood Glucose 94 70-110 MG/DL White Blood Count 5.9 4.8-10.8 K/uL Red Blood Count 2.78 L 4.50-6.20 MIL/uL Hemoglobin 7.4 L 14.0-18.0 g/dL Hematocrit 24.2 L 42-54 % Mean Corpuscular Volume 87.1 79-99 fL Mean Corpuscular Hemoglobin 26.6 L 27.0-33.0 pg Mean Corpuscular Hemoglobin Concent 30.6 L 32.0-36.0 g/dL Red Cell Distribution Width 16.1 H 11.0-15.5 % Platelet Count 200 130-400 K/uL Mean Platelet Volume 10.0 7.5-10.5 fL Immature Granulocyte % (Auto) 0.2 0-1 % Neutrophils (%) (Auto) 69.7 40.0-77.0 % Lymphocytes (%) (Auto) 17.9 L 21.0-51.0 % Monocytes (%) (Auto) 8.4 3.0-13.0 % Eosinophils (%) (Auto) 3.1 0.0-8.0 % Basophils (%) (Auto) 0.7 0.0-5.0 % Neutrophils # (Auto) 4.1 1.8-7.7 K/uL Lymphocytes # (Auto) 1.1 1.0-4.8 K/uL Monocytes # (Auto) 0.5 0.1-1.0 K/uL Eosinophils # (Auto) 0.18 0.00-0.70 K/uL Basophils # (Auto) 0.04 0.00-0.20 K/uL Absolute Immature Granulocyte (auto 0.01 0-1 K/uL Nucleated Red Blood Cells 0.0 0.0-0.19 % Sodium Level 144 136-145 mmol/L Potassium Level 3.9 3.5-5.1 mmol/L Chloride Level 111 101-111 mmol/L Carbon Dioxide Level 22 21-32 mmol/L Blood Urea Nitrogen 18 7-18 mg/dL Creatinine 1.1 0.5-1.3 mg/dL Glomerular Filtration Rate Calc 70 >90 mL/min Random Glucose 102 70-105 mg/dL Total Calcium 7.7 L 8.5-10.1 mg/dL Total Bilirubin 1.0 0.2-1.0 mg/dL Aspartate Amino Transf (AST/SGOT) 12 10-37 U/L Alanine Aminotransferase (ALT/SGPT) 3 L 12-78 U/L Alkaline Phosphatase 121 50-136 U/L Total Protein 6.4 6.0-8.3 g/dL Albumin 2.2 L 3.5-5.0 g/dL Red Blood Cell Morphology See comments Hemoglobin A1c 5.2 4.0-6.0 % Estimated Average Glucose (eAG) 103 70-126 mg/dL Phosphorus Level 3.5 2.5-4.9 mg/dL Magnesium Level 1.80 1.80-2.40 mg/dL Lactate Dehydrogenase 103 81-234 U/L Urine Color YELLOW YELLOW Urine Appearance CLEAR CLEAR Urine pH 5.5 5.0-8.0 Urine Specific [place] 1.021 1.001-1.031 Urine Protein 10 H NEGATIVE mg/dL Urine Glucose (UA) NEGATIVE NEGATIVE mg/dL Urine Ketones NEGATIVE NEGATIVE mg/dL Urine Occult Blood NEGATIVE NEGATIVE Urine Nitrate NEGATIVE NEGATIVE Urine Bilirubin NEGATIVE NEGATIVE mg/dL Urine Urobilinogen 4.0 H 0.2-1.0 mg/dL Urine Leukocyte Esterase NEGATIVE NEGATIVE Bassam/uL Urine RBC 0-1 0-1 /HPF Urine WBC 0-1 0-1 /HPF Urine Squamous Epithelial Cells RARE 0-2 /HPF Urine Bacteria FEW None Seen /HPF Test 08/09/24 18:14 08/09/24 17:55 Range/Units Stool Occult Blood POSITIVE H NEGATIVE Reticulocyte Count (auto) 3.08912 H 0.42-2.23 % Immature Reticulocyte Fraction 27.20 H 0.18-0.48 % Prothrombin Time 12.2 H 9.6-11.6 SEC Prothromb Time International Ratio 1.17 H 0.85-1.15 Activated Partial Thromboplast Time 28.2 26.3-35.5 SEC Iron Level 27 L 65-175 mcg/dL Total Iron Binding Capacity 294 250-450 mcg/dL Percent Iron Saturation 9.1 L 30-44 % Ferritin 36 30-400 ng/mL Troponin I High Sensitivity 10 4-75 ng/L B-Type Natriuretic Peptide 114 H 0-100 pg/mL Vitamin B12 Level 422 193-986 pg/mL Current Medications Medications (Trade) Dose Ordered Sig/Tracy Route PRN Reason Start Time Stop Time Status Last Admin Dose Admin Acetaminophen (TYLenol 325MG TAB) 650 mg Q6H PRN PO TEMPERATURE GREATER THAN 101.5 08/09/24 22:00 09/08/24 21:59 Hydralazine HCl (APRESOLine 20MG INJ) 10 mg Q6H PRN IV For:SBP above 160;DBP above 90 08/09/24 22:00 09/08/24 21:59 Insulin Human Regular (humuLIN R 100 UNIT/ML 3ML) INSULIN SLIDING SCAL... ACHS SQ 08/10/24 07:30 09/09/24 07:29 Magnesium Sulfate 50 ml @ 0 mls/hr PROTOCOL PRN IV h 08/10/24 00:30 09/09/24 00:29 Metoprolol Tartrate (loprESSOR) 5 mg Q5M PRN IV AFIB RVR > 120 BPM 08/09/24 22:00 Metoprolol Tartrate (loprESSOR) 12.5 mg BID PO 08/10/24 09:00 09/09/24 08:59 08/11/24 12:13 12.5 MG Morphine Sulfate (morPHINE 2MG SYG) 2 mg Q4H PRN IVP SEVERE PAIN (7-10) 08/09/24 22:00 08/16/24 21:59 Octreotide Acetate 1250 mcg/ Sodium Chloride 250 ml @ 0 mls/hr PROTOCOL IV 08/09/24 20:30 09/08/24 20:29 08/09/24 21:18 5 MLS/HR Ondansetron HCl (zoFRAN 4MG INJ) 4 mg Q6H PRN IV NAUSEA/VOMITING 08/09/24 22:00 09/08/24 21:59 Pantoprazole Sodium (PROTonix 40MG INJ) 40 mg ONCE IVP 08/09/24 20:00 08/09/24 23:59 DC 08/09/24 20:56 40 MG Pantoprazole Sodium 80 mg/ Sodium Chloride 100 ml @ 10 mls/hr Q10H IV 08/09/24 20:30 09/08/24 20:29 08/11/24 03:16 10 MLS/HR Pharmacy Profile Note (Pharmacy Communication) 1 each ONCE MISC 08/09/24 22:00 08/10/24 11:33 DC Potassium Chloride 100 ml @ 100 mls/hr AD PRN IV POTASSIUM PROTOCOL 08/10/24 00:30 09/09/24 00:29 Potassium Chloride (K-Dur/Klor-Con 20meq) 20 meq AD PRN PO POTASSIUM PROTOCOL 08/10/24 00:30 09/09/24 00:29 Potassium Chloride (KCl 10% Elixir 20meq/15ml) 20 meq AD PRN PO POTASSIUM PROTOCOL 08/10/24 00:30 09/09/24 00:29 Sodium Chloride 1,000 ml @ 100 mls/hr Q10H IV 08/09/24 20:30 09/08/24 20:29 08/11/24 03:16 100 MLS/HR DIAGNOSTICS / RADIOLOGY: [ ] ASSESSMENT: [ GI bleed, POA Acute blood loss anemia, POA Atrial fibrillation poa Diabetes mellitius type2 Hypertension Cerebral palsy Periumbilical hernia POA PLAN: [ Continue Protonix and Sandostatin drip. We will get record from the hospital where he had the colonoscopy. Follow GI consult. Keep patient NPO. Hemoglobin and hematocrit every 6 hours Check preprocedure labs, CBC, BMP, magnesium, phosphorus, PTT, UA, type and screen, EKG, CXR IV fluid maintenance therapy 0.9% NS at 100 mL/HR metoprolol 12.5 mg by mouth twice daily Start on IV Venofer daily. Administer metoprolol 5 mg IV every 5 minutes as needed for AFib RVR with heart rate greater than 120 beats per minute max three doses. DVT prophylaxis with SCDs contraindication for pharmacological prophylaxis due to active bleeding. ROGE HER MD August 11, 2024 13:18
[2024-08-11 16:37] LABS: HEMATOCRIT 25.6 % (42-54)
[2024-08-11 22:31] LABS: HEMATOCRIT 23.3 % (42-54)
[2024-08-12] VITALS (25 sets, daily range): BP systolic 122–163; BP diastolic 61–99; PULSE 67–84; RESP 15–20; TEMP 97.1–98.7; O2SAT 99–100
[2024-08-12 04:40] LABS: HEMATOCRIT 24.8 % (42-54)
[2024-08-12] MEDS: IRON sUCROse COMPLEX 300 MG in 0.9% NACL 250ML 250 ML IV ONE (09:49)
[2024-08-12] MEDS ORDERED: proPOFol 10 MG/ML 20ML VIAL IV ONE ×2 (10:49→10:50)
[2024-08-12] MEDS ORDERED: LIDOCAINE PF 100MG/5ML (2%) SYRINGE 5ML ONE (10:50)
--- NOTE | 2024-08-12 12:10 | NUR ---
ARRIVED FROM EGD vitals stable, alert and oriented x4, family at bedside
--- NOTE | 2024-08-12 12:49 | PN ---
[facility] PROGRESS NOTE Date of Service: August 12, 2024 Time of Service: 12:48 SUBJECTIVE: [ 74-year-old male that was seen and examined today on 08/09/2024. Patient is a good historian of personal health patient's daughter Stacey is at bedside. Patient states that he came to the emergency department with a chief complaint of melena. Onset was three months ago. Patient thinks it is because of a remote ERCP that he had. Location is rectal. Duration is on and off. Character is described as black stool. Symptoms are aggravated with defecation. There was no alleviating factors. Patient reports associated weakness. Today in the emergency department hemoglobin 7.9, hematocrit 25.0, no urinalysis has been collected or sent to lab, stool sample was positive for occult blood. Emergency room physician recommended that patient be admitted with a diagnosis of GI bleed. Patient also relates that it was just discharged from a care home in [place] and he had a colonoscopy two weeks ago and he was told he probably has cancer. Patient does not know what medications he was taking while he was in care home. 08/10/24 : Patient seen and examined along with RN. No new complaints. Pending formal GI consult plan for EGD today or tomorrow. Patient is currently on Protonix and Sandostatin drip. As per patient family he had a colonoscopy about three weeks back we will try to get the record. 08/11/2024. Patient was seen and examined along with RN. I was informed by the nursing staff that patient will not be getting EGD today. Transfer saturation shows 9% we will give IV Venofer. Patient continues to have black tarry stool. CT scan of the abdomen reviewed no signs of any mass or metastatic disease showing on the periumbilical hernia 08/12/2024. Patient was seen and examined along with RN. He is going for EGD today. Pending records from other hospital for the colonoscopy and biopsy he had done. REVIEW OF SYSTEMS CONSTITUTIONAL: Denies fevers, chills, or night sweats. No unintentional weight loss reported. NEUROLOGICAL: Denies headache, amaurosis fugax, motor weakness, sensory deficit, vertigo/spinning sensation, gait abnormalities, or tremors. ENT: No hearing loss, otalgia, otorrhea, rhinitis, rhinorrhea, hoarseness, or sore throat. CARDIOVASCULAR: Denies any exertional angina, dyspnea on exertion, orthopnea, paroxysmal nocturnal dyspnea, palpitations, life-threatening arrhythmias, cla udication. PULMONARY: Denies any shortness of breath, cough, phlegm/sputum, hemoptysis, pleuritic chest pain. SLEEP: Denies morning headaches, daytime somnolence or napping. Denies difficulty falling asleep, staying asleep, waking from sleep. Denies knowledge of snoring. GASTROINTESTINAL: Denies any type of dysphagia to either liquids or solids. Denies nausea, vomiting, pyrosis, early satiety, abdominal pain, diarrhea, constipation, or changes in stool consistency or caliber. Denies coffee-ground emesis, hematemesis, hematochezia, or melanotic stools. GENITOURINARY: Denies frequency, urgency, nocturia, hematuria or incontinence (Storage/Irritative symptoms.) Low urinary stream, straining to void, urinary intermittency or hesitancy, splitting of the voiding stream, terminal dribbling. ENDOCRINOLOGIC: Denies polyuria, polydipsia, polyphagia or heat/cold intolerances. HEMATOLOGIC: Denies thrombophilia/previous clots, or coagulopathy/bleeding disorders. ONCOLOGIC: Denies personal history of malignancy. DERMATOLOGIC: Denies rashes or pruritus. PSYCHIATRIC: Denies any suicidal or homicidal ideation. Denies hallucinations. PHYSICAL EXAM GENERAL APPEARANCE: The patient is awake, alert, and oriented, in no acute cardiopulmonary distress. NEUROLOGICAL: Cranial nerves II-XII grossly intact. Motor is 5/5 in bilateral upper and lower extremities proximal to distal. No sensory deficits. HEENT: Face is symmetric. Pupils are equal and reactive. Extraocular movements are intact. NECK: Supple. No JVD. No thyromegaly. No submental, submandibular, pre- /postauricular, occipital or supraclavicular lymphadenopathy. CHEST: Normal chest expansion. No Telemetry. LUNGS: Absence of any rales, rhonchi or any wheezing. CARDIOVASCULAR: Regular. S1 and S2 normal. No appreciable rubs, murmurs or gallops. ABDOMEN: Soft, nontender, and nondistended. There is no rebound, voluntary guarding, or rigidity. : Deferred. No Shaw. EXTREMITIES: Non-edematous and not cyanotic. No clubbing. Good capillary refill. SKIN: No skin breakdown. Vital Signs (last 8hr) Date Time Temp Pulse Resp B/P (MAP) Pulse Ox O2 Delivery O2 Flow Rate FiO2 08/12/24 12:10 97.2 72 17 156/83 99 Room Air 08/12/24 12:05 97.2 70 16 150/85 98 Room Air 08/12/24 12:00 97.2 70 15 153/84 98 Room Air 08/12/24 11:55 97.2 70 15 152/83 98 Room Air 08/12/24 11:50 97.2 72 15 153/81 99 Room Air 08/12/24 11:45 97.2 71 15 145/77 99 Room Air 08/12/24 11:40 97.2 70 15 129/82 96 Nasal Cannula 2.0 08/12/24 11:35 97.2 70 15 125/70 96 Nasal Cannula 2.0 08/12/24 11:30 97.2 70 15 138/78 96 Nasal Cannula 3.0 08/12/24 11:10 Mask 08/12/24 11:10 Mask 10.0 08/12/24 08:00 98.1 73 18 134/71 99 Room Air 08/12/24 08:00 99 Room Air* 0 21 LABS: Laboratory: Test 08/12/24 11:46 08/12/24 04:20 08/11/24 03:41 Range/Units Whole Blood Glucose 97 70-110 MG/DL Hemoglobin 7.2 L 14.0-18.0 g/dL Hematocrit 24.8 L 42-54 % White Blood Count 5.9 4.8-10.8 K/uL Red Blood Count 2.78 L 4.50-6.20 MIL/uL Mean Corpuscular Volume 87.1 79-99 fL Mean Corpuscular Hemoglobin 26.6 L 27.0-33.0 pg Mean Corpuscular Hemoglobin Concent 30.6 L 32.0-36.0 g/dL Red Cell Distribution Width 16.1 H 11.0-15.5 % Platelet Count 200 130-400 K/uL Mean Platelet Volume 10.0 7.5-10.5 fL Immature Granulocyte % (Auto) 0.2 0-1 % Neutrophils (%) (Auto) 69.7 40.0-77.0 % Lymphocytes (%) (Auto) 17.9 L 21.0-51.0 % Monocytes (%) (Auto) 8.4 3.0-13.0 % Eosinophils (%) (Auto) 3.1 0.0-8.0 % Basophils (%) (Auto) 0.7 0.0-5.0 % Neutrophils # (Auto) 4.1 1.8-7.7 K/uL Lymphocytes # (Auto) 1.1 1.0-4.8 K/uL Monocytes # (Auto) 0.5 0.1-1.0 K/uL Eosinophils # (Auto) 0.18 0.00-0.70 K/uL Basophils # (Auto) 0.04 0.00-0.20 K/uL Absolute Immature Granulocyte (auto 0.01 0-1 K/uL Nucleated Red Blood Cells 0.0 0.0-0.19 % Sodium Level 144 136-145 mmol/L Potassium Level 3.9 3.5-5.1 mmol/L Chloride Level 111 101-111 mmol/L Carbon Dioxide Level 22 21-32 mmol/L Blood Urea Nitrogen 18 7-18 mg/dL Creatinine 1.1 0.5-1.3 mg/dL Glomerular Filtration Rate Calc 70 >90 mL/min Random Glucose 102 70-105 mg/dL Total Calcium 7.7 L 8.5-10.1 mg/dL Total Bilirubin 1.0 0.2-1.0 mg/dL Aspartate Amino Transf (AST/SGOT) 12 10-37 U/L Alanine Aminotransferase (ALT/SGPT) 3 L 12-78 U/L Alkaline Phosphatase 121 50-136 U/L Total Protein 6.4 6.0-8.3 g/dL Albumin 2.2 L 3.5-5.0 g/dL Current Medications Medications (Trade) Dose Ordered Sig/Tracy Route PRN Reason Start Time Stop Time Status Last Admin Dose Admin Acetaminophen (TYLenol 325MG TAB) 650 mg Q6H PRN PO TEMPERATURE GREATER THAN 101.5 08/09/24 22:00 09/08/24 21:59 Hydralazine HCl (APRESOLine 20MG INJ) 10 mg Q6H PRN IV For:SBP above 160;DBP above 90 08/09/24 22:00 09/08/24 21:59 Hydrocortisone Acetate (anuSOL-HC 25MG SUPP) 1 supp BID PRN [place] HEMORRHOIDS 08/12/24 21:00 09/11/24 20:59 Insulin Human Regular (humuLIN R 100 UNIT/ML 3ML) INSULIN SLIDING SCAL... ACHS SQ 08/10/24 07:30 09/09/24 07:29 08/11/24 17:26 4 UNIT Magnesium Sulfate 50 ml @ 0 mls/hr PROTOCOL PRN IV h 08/10/24 00:30 09/09/24 00:29 Metoprolol Tartrate (loprESSOR) 5 mg Q5M PRN IV AFIB RVR > 120 BPM 08/09/24 22:00 Metoprolol Tartrate (loprESSOR) 12.5 mg BID PO 08/10/24 09:00 09/09/24 08:59 08/11/24 20:45 12.5 MG Morphine Sulfate (morPHINE 2MG SYG) 2 mg Q4H PRN IVP SEVERE PAIN (7-10) 08/09/24 22:00 08/16/24 21:59 Octreotide Acetate 1250 mcg/ Sodium Chloride 250 ml @ 0 mls/hr PROTOCOL IV 08/09/24 20:30 08/12/24 12:28 DC 08/11/24 21:13 5 MLS/HR Ondansetron HCl (zoFRAN 4MG INJ) 4 mg Q6H PRN IV NAUSEA/VOMITING 08/09/24 22:00 09/08/24 21:59 Pantoprazole Sodium (PROTonix 40MG INJ) 40 mg ONCE IVP 08/09/24 20:00 08/09/24 23:59 DC 08/09/24 20:56 40 MG Pantoprazole Sodium (PROTonix 40MG TAB) 40 mg BID PO 08/12/24 21:00 09/11/24 20:59 Pantoprazole Sodium 80 mg/ Sodium Chloride 100 ml @ 10 mls/hr Q10H IV 08/09/24 20:30 08/12/24 12:28 DC 08/12/24 03:18 10 MLS/HR Pharmacy Profile Note (Pharmacy Communication) 1 each ONCE MISC 08/09/24 22:00 08/10/24 11:33 DC Potassium Chloride 100 ml @ 100 mls/hr AD PRN IV POTASSIUM PROTOCOL 08/10/24 00:30 09/09/24 00:29 Potassium Chloride (K-Dur/Klor-Con 20meq) 20 meq AD PRN PO POTASSIUM PROTOCOL 08/10/24 00:30 09/09/24 00:29 Potassium Chloride (KCl 10% Elixir 20meq/15ml) 20 meq AD PRN PO POTASSIUM PROTOCOL 08/10/24 00:30 09/09/24 00:29 Sodium Chloride 1,000 ml @ 100 mls/hr Q10H IV 08/09/24 20:30 09/08/24 20:29 08/11/24 03:16 100 MLS/HR DIAGNOSTICS / RADIOLOGY: [ ] ASSESSMENT: [ GI bleed, POA Acute blood loss anemia, POA Atrial fibrillation poa Diabetes mellitius type2 Hypertension Cerebral palsy Periumbilical hernia POA PLAN: [ Continue Protonix and Sandostatin drip. EGD today we will follow recommendation We will get record from the hospital where he had the colonoscopy. GI consult appreciated. We will transfuse one packed RBC. Hemoglobin and hematocrit every 6 hours Check preprocedure labs, CBC, BMP, magnesium, phosphorus, PTT, UA, type and screen, EKG, CXR IV fluid maintenance therapy 0.9% NS at 100 mL/HR metoprolol 12.5 mg by mouth twice daily Start on IV Venofer daily. Administer metoprolol 5 mg IV every 5 minutes as needed for AFib RVR with heart rate greater than 120 beats per minute max three doses. DVT prophylaxis with SCDs contraindication for pharmacological prophylaxis due to active bleeding. ROGE HER MD August 12, 2024 12:49
[2024-08-12] MEDS ORDERED: hydroCORTISONE 25 MG SUPPOSITORY PR PRN (21:00)
[2024-08-12] MEDS: PANTOPrazole 40 MG TAB DR PO SCH (21:51)
[2024-08-13] VITALS (7 sets, daily range): BP systolic 120–149; BP diastolic 50–74; PULSE 71–74; RESP 18–22; TEMP 97.5–98.4; O2SAT 100
[2024-08-13 05:10] LABS: BASOPHILS # (AUTO) 0.02 K/uL (0.00-0.20); BASOPHILS % (AUTO) 0.3 % (0.0-5.0); EOSINOPHILS % (AUTO) 3.1 % (0.0-8.0); IMMATURE GRANULOCYTE ABSOLUTE 0.03 K/uL (0-1); LYMPHOCYTES # (AUTO) 1.1 K/uL (1.0-4.8); LYMPHOCYTES % (AUTO) 16.8 % (21.0-51.0); MEAN CORPUSCULAR HEMOGLOBIN 27.2 pg (27.0-33.0); MEAN CORPUSCULAR HGB CONC 31.2 g/dL (32.0-36.0); MEAN CORPUSCULAR VOLUME 87.1 fL (79-99); MONOCYTES # (AUTO) 0.5 K/uL (0.1-1.0); MONOCYTES % (AUTO) 7.8 % (3.0-13.0); NEUTROPHILS # (AUTO) 4.6 K/uL (1.8-7.7); NEUTROPHILS % (AUTO) 71.5 % (40.0-77.0); PLATELET COUNT (AUTO) 172 K/uL (130-400); RED BLOOD CELL COUNT(AUTO) 2.87 MIL/uL (4.50-6.20); RED CELL DISTRIBUTION WIDTH 15.9 % (11.0-15.5); WHITE BLOOD COUNT (AUTO) 6.4 K/uL (4.8-10.8)
[2024-08-13 05:26] LABS: POTASSIUM 3.7 mmol/L (3.5-5.1)
--- NOTE | 2024-08-13 07:36 | PN ---
GASTROENTEROLOGY PROGRESS NOTE Date of Visit: August 13, 2024 Time of Visit: 07:36 Events / Notes: [ ] Review of Systems: CONSTITUTIONAL: No malaise or change in sensation of wellbeing. ENMT: No rhinorrhea, otorrhea, sinus pain, ear ache. CARDIOVASCULAR: No angina, palpitations, orthopnea or paroxysmal dyspnea. RESPIRATORY: No SOB. GASTROINTESTINAL: No abdominal pain, nausea, vomiting, diarrhea, hematemesis, melena or change in the patient's habitual bowel movements consistency/number. GENITOURINARY: No dysuria, hematuria or change in bladder continence. MUSCULOSKELETAL: No new muscle pain or decrease in muscular strength. No new joint swelling, redness or tenderness. SKIN: No new rash. Physical Exam: GEN: Awake, alert, oriented in person, time and place, and in no acute distress. HEENT: No sinus tenderness. Tympanic membranes were not examined. No rhinorrhea. Oral pharyngeal mucosa is pink, moist and within normal limits. Neck is supple with no cervical lymphadenopathy, thyromegaly or JVD. CHEST: Inspection, palpation and percussion of the chest were unremarkable. Lung auscultation revealed normal breath sounds bilaterally. CARDIAC: PMI is within normal limits. Heart sounds are regular. Normal S1, S2. No gallop or murmur. ABD: Soft, non-tender and not distended. No peritoneal signs on palpation. No organomegaly. Normal bowel sounds. EXT: No cyanosis or clubbing. No edema. SKIN: Intact. No rashes. JOINTS: No evidence of synovitis or acute arthritis. NEURO: Alert and oriented to name, place and person. Cranial nerve examination is unremarkable. No focal motor deficits. Normal speech. Gait is normal. Strength is normal. Vital Signs (last 8hr) Date Time Temp Pulse Resp B/P (MAP) Pulse Ox O2 Delivery O2 Flow Rate FiO2 08/13/24 04:05 98.1 71 19 130/74 98 Room Air 08/12/24 23:37 98.4 70 18 125/61 100 Room Air Laboratory: [ ] Laboratory: Test 08/13/24 04:55 08/13/24 04:39 Range/Units Whole Blood Glucose 83 # 70-110 MG/DL White Blood Count 6.4 4.8-10.8 K/uL Red Blood Count 2.87 L 4.50-6.20 MIL/uL Hemoglobin 7.8 L 14.0-18.0 g/dL Hematocrit 25.0 L 42-54 % Mean Corpuscular Volume 87.1 79-99 fL Mean Corpuscular Hemoglobin 27.2 27.0-33.0 pg Mean Corpuscular Hemoglobin Concent 31.2 L 32.0-36.0 g/dL Red Cell Distribution Width 15.9 H 11.0-15.5 % Platelet Count 172 130-400 K/uL Mean Platelet Volume 9.4 7.5-10.5 fL Immature Granulocyte % (Auto) 0.5 0-1 % Neutrophils (%) (Auto) 71.5 40.0-77.0 % Lymphocytes (%) (Auto) 16.8 L 21.0-51.0 % Monocytes (%) (Auto) 7.8 3.0-13.0 % Eosinophils (%) (Auto) 3.1 0.0-8.0 % Basophils (%) (Auto) 0.3 0.0-5.0 % Neutrophils # (Auto) 4.6 1.8-7.7 K/uL Lymphocytes # (Auto) 1.1 1.0-4.8 K/uL Monocytes # (Auto) 0.5 0.1-1.0 K/uL Eosinophils # (Auto) 0.20 0.00-0.70 K/uL Basophils # (Auto) 0.02 0.00-0.20 K/uL Absolute Immature Granulocyte (auto 0.03 0-1 K/uL Nucleated Red Blood Cells 0.0 0.0-0.19 % Sodium Level 142 136-145 mmol/L Potassium Level 3.7 3.5-5.1 mmol/L Chloride Level 110 101-111 mmol/L Carbon Dioxide Level 23 21-32 mmol/L Blood Urea Nitrogen 11 7-18 mg/dL Creatinine 1.0 0.5-1.3 mg/dL Glomerular Filtration Rate Calc 79 >90 mL/min Random Glucose 78 70-105 mg/dL Total Calcium 7.6 L 8.5-10.1 mg/dL Current Medications Medications (Trade) Dose Ordered Sig/Tracy Route PRN Reason Start Time Stop Time Status Last Admin Dose Admin Acetaminophen (TYLenol 325MG TAB) 650 mg Q6H PRN PO TEMPERATURE GREATER THAN 101.5 08/09/24 22:00 09/08/24 21:59 Hydralazine HCl (APRESOLine 20MG INJ) 10 mg Q6H PRN IV For:SBP above 160;DBP above 90 08/09/24 22:00 09/08/24 21:59 Hydrocortisone Acetate (anuSOL-HC 25MG SUPP) 1 supp BID PRN [place] HEMORRHOIDS 08/12/24 21:00 09/11/24 20:59 Insulin Human Regular (humuLIN R 100 UNIT/ML 3ML) INSULIN SLIDING SCAL... ACHS SQ 08/10/24 07:30 09/09/24 07:29 08/12/24 21:58 2 UNIT Magnesium Sulfate 50 ml @ 0 mls/hr PROTOCOL PRN IV h 08/10/24 00:30 09/09/24 00:29 Metoprolol Tartrate (loprESSOR) 5 mg Q5M PRN IV AFIB RVR > 120 BPM 08/09/24 22:00 Metoprolol Tartrate (loprESSOR) 12.5 mg BID PO 08/10/24 09:00 09/09/24 08:59 08/12/24 21:51 12.5 MG Morphine Sulfate (morPHINE 2MG SYG) 2 mg Q4H PRN IVP SEVERE PAIN (7-10) 08/09/24 22:00 08/16/24 21:59 Octreotide Acetate 1250 mcg/ Sodium Chloride 250 ml @ 0 mls/hr PROTOCOL IV 08/09/24 20:30 08/12/24 12:28 DC 08/11/24 21:13 5 MLS/HR Ondansetron HCl (zoFRAN 4MG INJ) 4 mg Q6H PRN IV NAUSEA/VOMITING 08/09/24 22:00 09/08/24 21:59 Pantoprazole Sodium (PROTonix 40MG INJ) 40 mg ONCE IVP 08/09/24 20:00 08/09/24 23:59 DC 08/09/24 20:56 40 MG Pantoprazole Sodium (PROTonix 40MG TAB) 40 mg BID PO 08/12/24 21:00 09/11/24 20:59 08/12/24 21:51 40 MG Pantoprazole Sodium 80 mg/ Sodium Chloride 100 ml @ 10 mls/hr Q10H IV 08/09/24 20:30 08/12/24 12:28 DC 08/12/24 03:18 10 MLS/HR Pharmacy Profile Note (Pharmacy Communication) 1 each ONCE MISC 08/09/24 22:00 08/10/24 11:33 DC Potassium Chloride 100 ml @ 100 mls/hr AD PRN IV POTASSIUM PROTOCOL 08/10/24 00:30 09/09/24 00:29 Potassium Chloride (K-Dur/Klor-Con 20meq) 20 meq AD PRN PO POTASSIUM PROTOCOL 08/10/24 00:30 09/09/24 00:29 Potassium Chloride (KCl 10% Elixir 20meq/15ml) 20 meq AD PRN PO POTASSIUM PROTOCOL 08/10/24 00:30 09/09/24 00:29 Sodium Chloride 1,000 ml @ 100 mls/hr Q10H IV 08/09/24 20:30 09/08/24 20:29 08/12/24 23:02 100 MLS/HR Diagnostics / Radiology: [COPY/PASTE HERE IF NO REPORTS PLEASE DELETE SECTION] Assessment: [ ] Plan: [ ] 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
[2024-08-13] MEDS: PoTASSium chloRIDE 20MEQ ER 20 MEQ ERTAB PO PRN (08:18)
--- NOTE | 2024-08-13 10:36 | NUR ---
[facility] FROM [facility] CALLED FACILITY AND THEY INFORMED ME THAT MEDICAL RECORDS ARE NOT AVAILABLE WITH THEM AND THAT WE WOULD HAVE TO GO TO THE [employer] WEBSITE. PT LIDIA ID NUMBER: [id number] [facility]: [email or web address] [facility] FACILITY NUMBER: [phone]
--- NOTE | 2024-08-13 14:40 | PN ---
[facility] PROGRESS NOTE Date of Service: August 13, 2024 Time of Service: 14:40 SUBJECTIVE: [ 74-year-old male that was seen and examined today on 08/09/2024. Patient is a good historian of personal health patient's daughter Stacey is at bedside. Patient states that he came to the emergency department with a chief complaint of melena. Onset was three months ago. Patient thinks it is because of a remote ERCP that he had. Location is rectal. Duration is on and off. Character is described as black stool. Symptoms are aggravated with defecation. There was no alleviating factors. Patient reports associated weakness. Today in the emergency department hemoglobin 7.9, hematocrit 25.0, no urinalysis has been collected or sent to lab, stool sample was positive for occult blood. Emergency room physician recommended that patient be admitted with a diagnosis of GI bleed. Patient also relates that it was just discharged from a retirement in [place] and he had a colonoscopy two weeks ago and he was told he probably has cancer. Patient does not know what medications he was taking while he was in retirement. 08/10/24 : Patient seen and examined along with RN. No new complaints. Pending formal GI consult plan for EGD today or tomorrow. Patient is currently on Protonix and Sandostatin drip. As per patient family he had a colonoscopy about three weeks back we will try to get the record. 08/11/2024. Patient was seen and examined along with RN. I was informed by the nursing staff that patient will not be getting EGD today. Transfer saturation shows 9% we will give IV Venofer. Patient continues to have black tarry stool. CT scan of the abdomen reviewed no signs of any mass or metastatic disease showing on the periumbilical hernia 08/12/2024. Patient was seen and examined along with RN. He is going for EGD today. Pending records from other hospital for the colonoscopy and biopsy he had done. 08/13/2024. Patient was seen today he is status post EGD hemoglobin 7.8 after1 unit of packed RBC. We will get a bleeding scan today as EGD was unable to find any source of bleeding. REVIEW OF SYSTEMS CONSTITUTIONAL: Denies fevers, chills, or night sweats. No unintentional weight loss reported. NEUROLOGICAL: Denies headache, amaurosis fugax, motor weakness, sensory deficit, vertigo/spinning sensation, gait abnormalities, or tremors. ENT: No hearing loss, otalgia, otorrhea, rhinitis, rhinorrhea, hoarseness, or sore throat. CARDIOVASCULAR: Denies any exertional angina, dyspnea on exertion, orthopnea, paroxysmal nocturnal dyspnea, palpitations, life-threatening arrhythmias, claudication. PULMONARY: Denies any shortness of breath, cough, phlegm/sputum, hemoptysis, pleuritic chest pain. SLEEP: Denies morning headaches, daytime somnolence or napping. Denies difficulty falling asleep, staying asleep, waking from sleep. Denies knowledge of snoring. GASTROINTESTINAL: Denies any type of dysphagia to either liquids or solids. Denies nausea, vomiting, pyrosis, early satiety, abdominal pain, diarrhea, constipation, or changes in stool consistency or caliber. Denies coffee-ground emesis, hematemesis, hematochezia, or melanotic stools. GENITOURINARY: Denies frequency, urgency, nocturia, hematuria or incontinence (Storage/Irritative symptoms.) Low urinary stream, straining to void, urinary intermittency or hesitancy, splitting of the voiding stream, terminal dribbling. ENDOCRINOLOGIC: Denies polyuria, polydipsia, polyphagia or heat/cold intolerances. HEMATOLOGIC: Denies thrombophilia/previous clots, or coagulopathy/bleeding disorders. ONCOLOGIC: Denies personal history of malignancy. DERMATOLOGIC: Denies rashes or pruritus. PSYCHIATRIC: Denies any suicidal or homicidal ideation. Denies hallucinations. PHYSICAL EXAM GENERAL APPEARANCE: The patient is awake, alert, and oriented, in no acute cardiopulmonary distress. NEUROLOGICAL: Cranial nerves II-XII grossly intact. Motor is 5/5 in bilateral upper and lower extremities proximal to distal. No sensory deficits. HEENT: Face is symmetric. Pupils are equal and reactive. Extraocular movements are intact. NECK: Supple. No JVD. No thyromegaly. No submental, submandibular, pre-/p ostauricular, occipital or supraclavicular lymphadenopathy. CHEST: Normal chest expansion. No Telemetry. LUNGS: Absence of any rales, rhonchi or any wheezing. CARDIOVASCULAR: Regular. S1 and S2 normal. No appreciable rubs, murmurs or gallops. ABDOMEN: Soft, nontender, and nondistended. There is no rebound, voluntary guarding, or rigidity. : Deferred. No Shaw. EXTREMITIES: Non-edematous and not cyanotic. No clubbing. Good capillary refill. SKIN: No skin breakdown. Vital Signs (last 8hr) Date Time Temp Pulse Resp B/P (MAP) Pulse Ox O2 Delivery O2 Flow Rate FiO2 08/13/24 12:00 98.4 73 22 120/66 96 Room Air 08/13/24 08:00 100 Room Air* 0 21 08/13/24 08:00 97.5 74 18 128/69 100 Room Air LABS: Laboratory: Test 08/13/24 12:11 08/13/24 04:39 Range/Units Whole Blood Glucose 142 #H 70-110 MG/DL White Blood Count 6.4 4.8-10.8 K/uL Red Blood Count 2.87 L 4.50-6.20 MIL/uL Hemoglobin 7.8 L 14.0-18.0 g/dL Hematocrit 25.0 L 42-54 % Mean Corpuscular Volume 87.1 79-99 fL Mean Corpuscular Hemoglobin 27.2 27.0-33.0 pg Mean Corpuscular Hemoglobin Concent 31.2 L 32.0-36.0 g/dL Red Cell Distribution Width 15.9 H 11.0-15.5 % Platelet Count 172 130-400 K/uL Mean Platelet Volume 9.4 7.5-10.5 fL Immature Granulocyte % (Auto) 0.5 0-1 % Neutrophils (%) (Auto) 71.5 40.0-77.0 % Lymphocytes (%) (Auto) 16.8 L 21.0-51.0 % Monocytes (%) (Auto) 7.8 3.0-13.0 % Eosinophils (%) (Auto) 3.1 0.0-8.0 % Basophils (%) (Auto) 0.3 0.0-5.0 % Neutrophils # (Auto) 4.6 1.8-7.7 K/uL Lymphocytes # (Auto) 1.1 1.0-4.8 K/uL Monocytes # (Auto) 0.5 0.1-1.0 K/uL Eosinophils # (Auto) 0.20 0.00-0.70 K/uL Basophils # (Auto) 0.02 0.00-0.20 K/uL Absolute Immature Granulocyte (auto 0.03 0-1 K/uL Nucleated Red Blood Cells 0.0 0.0-0.19 % Sodium Level 142 136-145 mmol/L Potassium Level 3.7 3.5-5.1 mmol/L Chloride Level 110 101-111 mmol/L Carbon Dioxide Level 23 21-32 mmol/L Blood Urea Nitrogen 11 7-18 mg/dL Creatinine 1.0 0.5-1.3 mg/dL Glomerular Filtration Rate Calc 79 >90 mL/min Random Glucose 78 70-105 mg/dL Total Calcium 7.6 L 8.5-10.1 mg/dL Current Medications Medications (Trade) Dose Ordered Sig/Tracy Route PRN Reason Start Time Stop Time Status Last Admin Dose Admin Acetaminophen (TYLenol 325MG TAB) 650 mg Q6H PRN PO TEMPERATURE GREATER THAN 101.5 08/09/24 22:00 09/08/24 21:59 Hydralazine HCl (APRESOLine 20MG INJ) 10 mg Q6H PRN IV For:SBP above 160;DBP above 90 08/09/24 22:00 09/08/24 21:59 Hydrocortisone Acetate (anuSOL-HC 25MG SUPP) 1 supp BID PRN VT HEMORRHOIDS 08/12/24 21:00 09/11/24 20:59 Insulin Human Regular (humuLIN R 100 UNIT/ML 3ML) INSULIN SLIDING SCAL... ACHS SQ 08/10/24 07:30 09/09/24 07:29 08/12/24 21:58 2 UNIT Magnesium Sulfate 50 ml @ 0 mls/hr PROTOCOL PRN IV h 08/10/24 00:30 09/09/24 00:29 Metoprolol Tartrate (loprESSOR) 5 mg Q5M PRN IV AFIB RVR > 120 BPM 08/09/24 22:00 Metoprolol Tartrate (loprESSOR) 12.5 mg BID PO 08/10/24 09:00 09/09/24 08:59 08/13/24 08:18 12.5 MG Morphine Sulfate (morPHINE 2MG SYG) 2 mg Q4H PRN IVP SEVERE PAIN (7-10) 08/09/24 22:00 08/16/24 21:59 Octreotide Acetate 1250 mcg/ Sodium Chloride 250 ml @ 0 mls/hr PROTOCOL IV 08/09/24 20:30 08/12/24 12:28 DC 08/11/24 21:13 5 MLS/HR Ondansetron HCl (zoFRAN 4MG INJ) 4 mg Q6H PRN IV NAUSEA/VOMITING 08/09/24 22:00 09/08/24 21:59 Pantoprazole Sodium (PROTonix 40MG INJ) 40 mg ONCE IVP 08/09/24 20:00 08/09/24 23:59 DC 08/09/24 20:56 40 MG Pantoprazole Sodium (PROTonix 40MG TAB) 40 mg BID PO 08/12/24 21:00 09/11/24 20:59 08/13/24 08:17 40 MG Pantoprazole Sodium 80 mg/ Sodium Chloride 100 ml @ 10 mls/hr Q10H IV 08/09/24 20:30 08/12/24 12:28 DC 08/12/24 03:18 10 MLS/HR Pharmacy Profile Note (Pharmacy Communication) 1 each ONCE MISC 08/09/24 22:00 08/10/24 11:33 DC Potassium Chloride 100 ml @ 100 mls/hr AD PRN IV POTASSIUM PROTOCOL 08/10/24 00:30 09/09/24 00:29 Potassium Chloride (K-Dur/Klor-Con 20meq) 20 meq AD PRN PO POTASSIUM PROTOCOL 08/10/24 00:30 09/09/24 00:29 08/13/24 08:18 20 MEQ Potassium Chloride (KCl 10% Elixir 20meq/15ml) 20 meq AD PRN PO POTASSIUM PROTOCOL 08/10/24 00:30 09/09/24 00:29 Sodium Chloride 1,000 ml @ 100 mls/hr Q10H IV 08/09/24 20:30 09/08/24 20:29 08/12/24 23:02 100 MLS/HR DIAGNOSTICS / RADIOLOGY: [ ] ASSESSMENT: [ GI bleed, POA Acute blood loss anemia, POA Atrial fibrillation poa Diabetes mellitius type2 Hypertension Cerebral palsy Periumbilical hernia POA History of pacemaker POA PLAN: [ Discontinue Protonix and Sandostatin drip. Switch to p.o. Protonix 40 b.i.d.. EGD was performed no . Bleeding identified biopsy taken. We will get bleeding scan We will get record from the hospital where he had the colonoscopy. GI consult appreciated. Status post transferrin on 08/12 one packed RBC. Patient has a history of pacemaker we will get record from his primary care doctor. Start on IV Venofer daily. DVT prophylaxis with SCDs contraindication for pharmacological prophylaxis due to active bleeding. ROGE HER MD August 13, 2024 14:40
[2024-08-13] MEDS: HEParin 5,000 UNIT VIAL ONE (16:05)
--- NOTE | 2024-08-13 17:03 | CONS ---
Cardiology consultation Date of service: August 13, 2024 Reason for consult: Evaluation of atrial fibrillation History of present illness: 74-year-old male well known to me from prior inpatient and outpatient cardiac evaluations. He has known chronic permanent atrial fibrillation And sick sinus ( bradycardia tachycardia variant) treated with single-chamber Medtronic pacemaker insertion and AV junctional ablation in addition to Metoprolol succinate for lenient heart rate control. Patient also has a history of carotid stenosis and peripheral vascular disease advised medical management Given limited functional capacity wheelchair-bound unable to exercise previously taking dual antiplatelet therapy aspirin and clopidogrel. Patient reportedly was in [facility] and medications were withheld. No complaints of chest pain increased shortness of breath or palpitations. EKG done showed atrial fibrillation with patient now ventricular pacing. Of note, patient is noncompliant and was last seen in the office September 24, 2022. Past medical history: Chronic permanent atrial fibrillation status post AV junctional ablation Chronic systemic hypertension Mixed dyslipidemia with a low HDL Morbid obesity Sick Sinus with prior single-chamber pacemaker implant Past surgical history: None No known drug allergies Social history: Former smoker and alcohol drinker Family history: Noncontributory Review of systems: No fever no chills no weight loss No blurring or dizziness or vision no dysphagia no sore throat No chest pain or palpitations no PND orthopnea claudication or edema No shortness of breath no cough hemoptysis No abdominal pain or nausea no vomiting positive for melena No dysuria hesitancy No myalgias or arthralgia No rashes No easy bruisability No heat or cold intolerance No focal weakness numbness or syncope Physical examination: Obese male in no acute distress Pale palpebral conjunctivae anicteric sclerae Supple neck no JVD no carotid bruit Symmetrical chest expansion no retraction decreased breath sounds Irregularly irregular varying S1 and S2 2/6 tricuspid regurgitation murmur Distended abdomen soft no organomegaly Trace pedal edema difficult to palpate distal pulses when after Impression: Chronic permanent atrial fibrillation with prior single-chamber pacemaker insertion and AV junctional ablation in this patient currently admitted for GI bleeding status post upper GI endoscopy pending bleeding scan Diagnosis: 1. Chronic permanent atrial fibrillation status post single-chamber Medtronic pacemaker insertion and AV junctional ablation 2. Chronic peripheral vascular disease previously on dual antiplatelet therapy 3. Presumed coronary artery disease managed medically given poor functional capacity 4. Mild carotid artery stenosis 5. Chronic systemic hypertension 6. Metabolic syndrome with low HDL Recommendations: Regarding atrial fibrillation, lenient heart rate control is recommended. Do not be afraid to give us much AV jameel blocking agents And prioritize metoprolol over diltiazem. Patient has a backup rate of about 60 beats per minute. Obviously given Admission GI bleeding, anticoagulation is contraindicated at this time. Future outpatient plans to consider Watchman procedure If the patient shows up in the office. As mentioned above, the patient is known to be noncompliant with outpatient appointments. Regarding vasculopathy including coronary artery disease and peripheral vascular disease, antiplatelet therapy is contraindicated at this time. Once discharged follow up with Dr. Mejia in 1-2 weeks Vitals/Labs Vital Signs Date Time Temp Pulse Resp B/P (MAP) Pulse Ox O2 Delivery O2 Flow Rate FiO2 08/13/24 16:00 98.2 71 18 141/72 100 Room Air 08/13/24 08:00 0 21 Laboratory Tests 08/13/24 04:39 Allergies: Coded Allergies: No Known Drug Allergies (Unverified Allergy, Unknown, 08/09/24) DAVIDSON MEJIA MD August 13, 2024 17:03
--- NOTE | 2024-08-13 19:40 | HMCIMG ---
Nuclear GI bleed scan INDICATION: Suspected GI bleed TECHNIQUE: Images were obtained following administration of 23 mCi of Tc99m tagged red blood cells. FINDINGS: There is normal appearance of activity in the blood pool. There are no focal abnormal accumulations to suggest active GI bleeding. IMPRESSION: Normal GI bleeding scan.
[2024-08-13] MEDS: IRON sUCROse COMPLEX 300 MG in 0.9% NACL 250ML 250 ML IV ONE (22:11)
[2024-08-14 03:13] VITALS: BP_SYST 143; BP_SYST 90; BP_DIAS 51; BP_DIAS 52; PULSE 72; PULSE 80; RESP 18; RESP 20; TEMP 97.5; TEMP 98.1
[2024-08-14 08:00] VITALS: BP 130/65; PULSE 70; RESP 18; TEMP 97.8
[2024-08-14 10:23] LABS: BASOPHILS # (AUTO) 0.02 K/uL (0.00-0.20); BASOPHILS % (AUTO) 0.3 % (0.0-5.0); EOSINOPHILS # (AUTO) 0.15 K/uL (0.00-0.70); EOSINOPHILS % (AUTO) 2.2 % (0.0-8.0); HEMATOCRIT 26.7 % (42-54); IMMATURE GRANULOCYTE ABSOLUTE 0.02 K/uL (0-1); LYMPHOCYTES # (AUTO) 1.1 K/uL (1.0-4.8); LYMPHOCYTES % (AUTO) 15.2 % (21.0-51.0); MEAN CORPUSCULAR HEMOGLOBIN 27.3 pg (27.0-33.0); MEAN CORPUSCULAR HGB CONC 30.3 g/dL (32.0-36.0); MEAN CORPUSCULAR VOLUME 89.9 fL (79-99); MONOCYTES # (AUTO) 0.5 K/uL (0.1-1.0); MONOCYTES % (AUTO) 7.8 % (3.0-13.0); NEUTROPHILS # (AUTO) 5.1 K/uL (1.8-7.7); NEUTROPHILS % (AUTO) 74.2 % (40.0-77.0); PLATELET COUNT (AUTO) 183 K/uL (130-400); RED BLOOD CELL COUNT(AUTO) 2.97 MIL/uL (4.50-6.20); WHITE BLOOD COUNT (AUTO) 6.9 K/uL (4.8-10.8)
[2024-08-14 10:36] LABS: CREATININE 0.9 mg/dL (0.5-1.3); POTASSIUM 4.3 mmol/L (3.5-5.1)
[2024-08-14 12:00] VITALS: BP 141/75; PULSE 73; RESP 17; TEMP 98.3
[2024-08-14] MEDS ORDERED: FERS325 PO (14:57)
[2024-08-14] MEDS ORDERED: HYDR25SU11 PR (14:57)
[2024-08-14] MEDS ORDERED: PANT40TA PO (14:57)
[2024-08-14] MEDS ORDERED: METO25TA6 PO (14:57)
[2024-08-14] MEDS ORDERED: MULT-1203 PO (14:57)
--- NOTE | 2024-08-14 15:09 | DS ---
Discharge Summary Hospital Course Summary: 74-year-old male that was seen and examined today on 08/09/2024. Patient is a good historian of personal health patient's daughter Stacey is at bedside. Patient states that he came to the emergency department with a chief complaint of melena. Onset was three months ago. Patient thinks it is because of a remote ERCP that he had. Location is rectal. Duration is on and off. Character is described as black stool. Symptoms are aggravated with defecation. There was no alleviating factors. Patient reports associated weakness. Today in the emergency department hemoglobin 7.9, hematocrit 25.0, no urinalysis has been collected or sent to lab, stool sample was positive for occult blood. Emergency room physician recommended that patient be admitted with a diagnosis of GI bleed. Patient also relates that it was just discharged from a [facility] in [place] and he had a colonoscopy two weeks ago and he was told he probably has cancer. Patient does not know what medications he was taking while he was in [facility]. 08/10/24 : Patient seen and examined along with RN. No new complaints. Pending formal GI consult plan for EGD today or tomorrow. Patient is currently on Protonix and Sandostatin drip. As per patient family he had a colonoscopy about three weeks back we will try to get the record. 08/11/2024. Patient was seen and examined along with RN. I was informed by the nursing staff that patient will not be getting EGD today. Transfer saturation shows 9% we will give IV Venofer. Patient continues to have black tarry stool. CT scan of the abdomen reviewed no signs of any mass or metastatic disease showing on the periumbilical hernia 08/12/2024. Patient was seen and examined along with RN. He is going for EGD today. Pending records from other hospital for the colonoscopy and biopsy he had done. 08/13/2024. Patient was seen today he is status post EGD( EGD showed normal esophagus normal stomach retained food in duodenum, acquired duodenal stenosis which was biopsied. Patient duodenum showed acquired malignant-appearing intrinsic severe stone stenosis in the 1st portion of the duodenum and in the 2nd portion of the duodenum which was traversed and biopsies were taken with cold forceps for histology) hemoglobin 7.8 after1 unit of packed RBC. We will get a bleeding scan today as EGD was unable to find any source of bleeding. 04/15/2024. Patient was seen and examined along with RN. No new complaints hemoglobin is stable at 8.1 today. Patient will follow up with GI for possible capsule endoscopy as well as biopsy report from the EGD. Patient was also seen by his corporate tax preparer Dr. German who started the patient on metoprolol and he will follow with him outpatient. We will give one dose of IV Venofer before he goes. Bleeding scan was done and which was negative for any bleeding. High Pressure Operator(s): LAMINE [employer]IV[employer] PRODUCTION CORRUGATOR: For gastroenterology. Recommended EGD which was performed recommended to give IV Protonix which was given. Biopsy were taken during EGD patient will follow up outpatient with Gastroenterology for possible capsule endoscopy as well as biopsy report results. DAVIDSON MEJIA MD: Cardiology recommended to hold off anticoagulation because of GI bleed, started on metoprolol to follow outpatient with Dr. Mejia. Procedure(s): EGD was performed: On 08/12/2024. EGD showed normal esophagus normal stomach retained food in duodenum, acquired duodenal stenosis which was biopsied. Patient duodenum showed acquired malignant-appearing intrinsic severe stone stenosis in the 1st portion of the duodenum and in the 2nd portion of the duodenum which was traversed and biopsies were taken with cold forceps for histology. Laboratory Tests Test 08/12/24 16:50 08/12/24 19:37 08/13/24 04:39 08/13/24 04:55 Whole Blood Glucose 126 MG/DL (70-110) H 181 MG/DL (70-110) H 83 MG/DL (70-110) # White Blood Count 6.4 K/uL (4.8-10.8) Red Blood Count 2.87 MIL/uL (4.50-6.20) L Hemoglobin 7.8 g/dL (14.0-18.0) L Hematocrit 25.0 % (42-54) L Mean Corpuscular Volume 87.1 fL (79-99) Mean Corpuscular Hemoglobin 27.2 pg (27.0-33.0) Mean Corpuscular Hemoglobin Concent 31.2 g/dL (32.0-36.0) L Red Cell Distribution Width 15.9 % (11.0-15.5) H Platelet Count 172 K/uL (130-400) Mean Platelet Volume 9.4 fL (7.5-10.5) Immature Granulocyte % (Auto) 0.5 % (0-1) Neutrophils (%) (Auto) 71.5 % (40.0-77.0) Lymphocytes (%) (Auto) 16.8 % (21.0-51.0) L Monocytes (%) (Auto) 7.8 % (3.0-13.0) Eosinophils (%) (Auto) 3.1 % (0.0-8.0) Basophils (%) (Auto) 0.3 % (0.0-5.0) Neutrophils # (Auto) 4.6 K/uL (1.8-7.7) Lymphocytes # (Auto) 1.1 K/uL (1.0-4.8) Monocytes # (Auto) 0.5 K/uL (0.1-1.0) Eosinophils # (Auto) 0.20 K/uL (0.00-0.70) Basophils # (Auto) 0.02 K/uL (0.00-0.20) Absolute Immature Granulocyte (auto 0.03 K/uL (0-1) Nucleated Red Blood Cells 0.0 % (0.0-0.19) Sodium Level 142 mmol/L (136-145) Potassium Level 3.7 mmol/L (3.5-5.1) Chloride Level 110 mmol/L (101-111) Carbon Dioxide Level 23 mmol/L (21-32) Blood Urea Nitrogen 11 mg/dL (7-18) Creatinine 1.0 mg/dL (0.5-1.3) Glomerular Filtration Rate Calc 79 mL/min (>90) Random Glucose 78 mg/dL (70-105) Total Calcium 7.6 mg/dL (8.5-10.1) L Test 08/13/24 12:11 08/13/24 19:35 08/14/24 05:26 08/14/24 10:08 Whole Blood Glucose 142 MG/DL (70-110) #H 89 MG/DL (70-110) 104 MG/DL (70-110) White Blood Count 6.9 K/uL (4.8-10.8) Red Blood Count 2.97 MIL/uL (4.50-6.20) L Hemoglobin 8.1 g/dL (14.0-18.0) L Hematocrit 26.7 % (42-54) L Mean Corpuscular Volume 89.9 fL (79-99) Mean Corpuscular Hemoglobin 27.3 pg (27.0-33.0) Mean Corpuscular Hemoglobin Concent 30.3 g/dL (32.0-36.0) L Red Cell Distribution Width 17.0 % (11.0-15.5) H Platelet Count 183 K/uL (130-400) Mean Platelet Volume 9.6 fL (7.5-10.5) Immature Granulocyte % (Auto) 0.3 % (0-1) Neutrophils (%) (Auto) 74.2 % (40.0-77.0) Lymphocytes (%) (Auto) 15.2 % (21.0-51.0) L Monocytes (%) (Auto) 7.8 % (3.0-13.0) Eosinophils (%) (Auto) 2.2 % (0.0-8.0) Basophils (%) (Auto) 0.3 % (0.0-5.0) Neutrophils # (Auto) 5.1 K/uL (1.8-7.7) Lymphocytes # (Auto) 1.1 K/uL (1.0-4.8) Monocytes # (Auto) 0.5 K/uL (0.1-1.0) Eosinophils # (Auto) 0.15 K/uL (0.00-0.70) Basophils # (Auto) 0.02 K/uL (0.00-0.20) Absolute Immature Granulocyte (auto 0.02 K/uL (0-1) Nucleated Red Blood Cells 0.0 % (0.0-0.19) Sodium Level 143 mmol/L (136-145) Potassium Level 4.3 mmol/L (3.5-5.1) Chloride Level 112 mmol/L (101-111) H Carbon Dioxide Level 23 mmol/L (21-32) Blood Urea Nitrogen 13 mg/dL (7-18) Creatinine 0.9 mg/dL (0.5-1.3) Glomerular Filtration Rate Calc 90 mL/min (>90) Random Glucose 107 mg/dL (70-105) H Total Calcium 7.8 mg/dL (8.5-10.1) L Test 08/14/24 11:42 Whole Blood Glucose 91 MG/DL (70-110) Vital Signs Date Time Temp Pulse Resp B/P (MAP) Pulse Ox O2 Delivery O2 Flow Rate FiO2 08/14/24 12:00 98.2 73 17 141/75 100 Room Air 08/13/24 19:18 [address] [place] [address] IMAGING REPORT Signed PATIENT: KRISTI GREWAL MR#: [id number] : 1950 SEX: M AGE: 74 LOCATION: [facility] ORDER 1130 STATUS: ADM IN REPORT#: [id number] SERVICE 1128 REASON: Suspected GI bleed ORDERING PHYSICIAN: ROGE HER MD PROCEDURE: GIBLEED - NM GI BLOOD LOSS IMAG Nuclear GI bleed scan INDICATION: Suspected GI bleed TECHNIQUE: Images were obtained following administration of 23 mCi of Tc99m tagged red blood cells. FINDINGS: There is normal appearance of activity in the blood pool. There are no focal abnormal accumulations to suggest active GI bleeding. IMPRESSION: Normal GI bleeding scan. DICTATED BY: YVETTE SEGURA MD DATE: 08/13/241936 ELECTRONICALLY SIGNED BY: YVETTE SEGURA MD DATE: 08/13/241939 Assessment/Plan: ASSESSMENT: GI bleed, POA Acute blood loss anemia, POA Atrial fibrillation poa Diabetes mellitius type2 Hypertension Cerebral palsy Periumbilical hernia POA History of pacemaker POA Acquired stricture of duodenum POA New Medications: Ferrous Sulfate (Ferrous Sulfate) 325 Mg (65 Mg Iron) Ectab 1 TAB PO DAILY for 30 Days, #30 TAB 0 Refills Metoprolol Tartrate (Metoprolol Tartrate) 25 Mg Tablet 0.5 TAB PO BID for 30 Days, #60 TAB 0 Refills Multivitamin (Multi Vitamin Daily) 1 Each Tablet 1 TAB PO DAILY for 30 Days, #30 TAB 0 Refills Pantoprazole Sodium (Protonix) 40 Mg Tablet.dr 40 MG PO BID for 30 Days, #60 TAB Hydrocortisone Acetate (Anucort-Hc) 25 Mg Supp.rect 1 SUPP MI BID PRN for HEMORRHOIDS, #30 EA Time spent arranging discharge: 31-60 minutes ROGE HER MD August 14, 2024 15:08
[2024-08-14 16:00] VITALS: BP 140/67; PULSE 70; RESP 18; TEMP 97.6
[2024-08-14] MEDS ORDERED: COMPOUND IV MISC 1 EACH IVSOLN MISC PRN (16:00)
[2024-08-14] MEDS: IRON sUCROse COMPLEX 300 MG in 0.9% NACL 250ML 250 ML IV ONE (16:58)
[2024-08-14 20:00] VITALS: BP 135/70; PULSE 63; RESP 18; TEMP 97.3
--- NOTE | 2024-08-14 20:53 | NUR ---
NURSING NOTES DISCHARGE INSTRUCTIONS GIVEN AND EXPLAINED TO HIS DAUGHTER AND SHE SIGNED THE DISCHARGE PAPERS. UNDERSTANDING VERBALIZED. INSTRUCTED ABOUT THE APPOINTMENT TO PCP, GI AND HOURLY ASSOCIATE.
--- NOTE | 2024-08-14 21:16 | NUR ---
NURSING NOTES PATIENT DISCHARGE VIA WHEELCHAIR (PT.'S OWN) WITH FAMILY MEMBER, IN STABLE CONDITION. IV REMOVED AND COVERED WITH GAUZE AND BAND-AID.
== END 2024-08-14 21:17 | disposition home or self-care (01) | DRG 378 ==
LOC: EDH 17:20 → EDHIP 17:21 → 4CH 23:36
PROVIDERS: ADMIT Internal Medicine; ATTEND Internal Medicine
PROC: 30233N1 Transfusion of Nonautologous Red Blood Cells into Peripheral Vein, Percutaneous Approach (ICD-10-PCS; 2024-08-10)
PROC: 0DB98ZX Excision of Duodenum, Via Natural or Artificial Opening Endoscopic, Diagnostic (ICD-10-PCS; principal; 2024-08-12)
PROC: 0DC98ZZ Extirpation of Matter from Duodenum, Via Natural or Artificial Opening Endoscopic (ICD-10-PCS; 2024-08-12)
DX: K92.2 Gastrointestinal hemorrhage, unspecified (principal); D62 Acute posthemorrhagic anemia; K31.5 Obstruction of duodenum; I48.21 Permanent atrial fibrillation; T18.3XXA Foreign body in small intestine, initial encounter; I50.9 Heart failure, unspecified; I11.0 Hypertensive heart disease with heart failure; K42.9 Umbilical hernia without obstruction or gangrene; E11.51 Type 2 diabetes mellitus with diabetic peripheral angiopathy without gangrene; I25.10 Atherosclerotic heart disease of native coronary artery without angina pectoris; I65.29 Occlusion and stenosis of unspecified carotid artery; I49.5 Sick sinus syndrome; G80.9 Cerebral palsy, unspecified; E88.810 Metabolic syndrome; E78.2 Mixed hyperlipidemia; E66.01 Morbid (severe) obesity due to excess calories; Z51.5 Encounter for palliative care; Z87.442 Personal history of urinary calculi; Z87.891 Personal history of nicotine dependence; Z91.199 Patient's noncompliance with other medical treatment and regimen due to unspecified reason; Z95.0 Presence of cardiac pacemaker; Z99.3 Dependence on wheelchair; Z68.26 Body mass index [BMI] 26.0-26.9, adult; Y92.89 Other specified places as the place of occurrence of the external cause
CPT/HCPCS: 36415; 36430; 43239; 43247; 71045; 74178; 78278; 80048; 80053; 81003; 82270; 82607; 82728; 82948; 83036; 83615; 83735; 83880; 84100; 84484; 85014; 85018; 85025; 85610; 85730; 86850; 86900; 86901; 86923; 93005; 99285; A4606; A9512; G0378; J1644; J1756; J1815; J2003; J2354; J2470; J2704; J3490; J7030; J7050; P9016; Q9967; A4215; A4222; A4223; A4600; A4620

== ENCOUNTER 2024-08-23 12:52 | Emergency (ER) | payer SELFPAY ==
[~2024-08-23] VITALS: Ht 180.3 cm; Wt 89.4 kg
[~2024-08-23 12:52] MED LIST: FERS325 PO; HYDR25SU11 PR; METO25TA6 PO; MULT-1203 PO; PANT40TA PO
[2024-08-23 14:43] LABS: BASOPHILS # (AUTO) 0.02 K/uL (0.00-0.20); BASOPHILS % (AUTO) 0.3 % (0.0-5.0); EOSINOPHILS # (AUTO) 0.17 K/uL (0.00-0.70); EOSINOPHILS % (AUTO) 2.4 % (0.0-8.0); HEMATOCRIT 26.6 % (42-54); IMMATURE GRANULOCYTE ABSOLUTE 0.03 K/uL (0-1); LYMPHOCYTES % (AUTO) 14.1 % (21.0-51.0); MEAN CORPUSCULAR HEMOGLOBIN 28.3 pg (27.0-33.0); MEAN CORPUSCULAR HGB CONC 30.1 g/dL (32.0-36.0); MONOCYTES # (AUTO) 0.5 K/uL (0.1-1.0); MONOCYTES % (AUTO) 6.4 % (3.0-13.0); NEUTROPHILS # (AUTO) 5.5 K/uL (1.8-7.7); NEUTROPHILS % (AUTO) 76.4 % (40.0-77.0); PLATELET COUNT (AUTO) 210 K/uL (130-400); RED BLOOD CELL COUNT(AUTO) 2.83 MIL/uL (4.50-6.20); RED CELL DISTRIBUTION WIDTH 19.6 % (11.0-15.5); WHITE BLOOD COUNT (AUTO) 7.2 K/uL (4.8-10.8)
--- NOTE | 2024-08-23 14:50 | NUR ---
PT SITUATED IN 15
[2024-08-23 14:53] LABS: POTASSIUM 4.5 mmol/L (3.5-5.1)
[2024-08-23 14:55] LABS: INR 1.24 (0.85-1.15); PROTHROMBIN TIME 12.9 SEC (9.6-11.6)
[2024-08-23 14:56] LABS: PARTIAL THROMBOPLASTIN TIME 30.4 SEC (26.3-35.5)
--- NOTE | 2024-08-23 16:29 | ERN ---
General Chief Complaint: Fatigue Stated Complaint: WEAKNESS,MULTIPLE Time Seen by MD: 14:15 Time Seen by Midlevel: 14:15 Source: patient History of Present Illness Initial Comments 74-year-old male presents to the emergency department due to generalized weakness. Daughter reports patient had just been admitted and received 4 units of blood due to his anemia. Patient was recently released from [employer], he states he was receiving 2 units of blood every 10 days for the last two months he was there. Last seen patient was admitted he was referred with GI, had endoscopy performed and is pending results. Patient denies any current pain, states he noticed his stool getting little bit darker. Daughter's concern patient needs another transfusion. PMHx AFib, HTN, DM Allergies: Coded Allergies: hydrocodone (Unverified Allergy, Unknown, 08/23/24) Home Meds Active Scripts Multivitamin (Multi Vitamin Daily) 1 Each Tablet, 1 TAB PO DAILY for 30 Days, #30 TAB 0 Refills Prov:ROGE HER MD 08/14/24 Ferrous Sulfate (Ferrous Sulfate) 325 Mg (65 Mg Iron) Ectab, 1 TAB PO DAILY for 30 Days, #30 TAB 0 Refills Prov:ROGE HER MD 08/14/24 Hydrocortisone Acetate (Anucort-Hc) 25 Mg Supp.rect, 1 SUPP HI BID PRN for HEMORRHOIDS, #30 EA Prov:ROGE HER MD 08/14/24 Metoprolol Tartrate (Metoprolol Tartrate) 25 Mg Tablet, 0.5 TAB PO BID for 30 Days, #60 TAB 0 Refills Prov:ROGE HER MD 08/14/24 Pantoprazole Sodium (Protonix) 40 Mg Tablet.dr, 40 MG PO BID for 30 Days, #60 TAB Prov:ROGE HER MD 08/14/24 Past Medical History Past Medical History: A-Fib, Diabetes-Type II, Hypertension Medical History Other: PACEMAKER, CEREBRAL PALSY Past Surgical History: Pacer/AICD, Other Surgical History Other: RIGHT LEG ROS Dictation Constitutional: Positive for generalized weakness Negative for fever,chills, and weight loss Eyes: Negative for injury, pain,redness, and discharge ENT: Negative for injury,pain or swelling Cardiovascular: Negative for chest pain, palpitations, and edema Respiratory: Negative for shortness of breath, cough, and wheezing, Abdomen/GI: Positive for black stool Negative for abdominal pain, nausea, vo miting, diarrhea, and constipation Back: Negative for injury and pain : Negative for painful urination, bleeding or discharge MS/Extremity: Negative for injury and deformity Skin: Negative for rash, and discoloration Neuro: Negative for headache, weakness, numbness, tingling, and seizure Psych: Negative for suicide ideation, homicidal ideation, and hallucinations Physical Exam Physical Exam Dictation General: awake, alert, no acute distress Head/Face: Normocephalic, atraumatic Eyes: PERRL, EOMI, normal conjunctiva ENT: oral cavity clear, oral mucosa moist Neck: Supple, normal range of motion Cardiovascular: RRR, normal S1/S2 Respiratory: CTAB, no respiratory distress, no rales or wheezes Abdomen: Soft, non-tender, non-distended, normal bowel sounds, no guarding or rebound. Skin: Warm, dry, normal turgor, no rash MS/Extremity: Pulses equal, no cyanosis, neurovascular intact, FROM Neuro: COAx4, GCS 15, strength 5/5, CN 2-12 intact, normal cerebellar exam, normal gait Psych: Normal behavior, mood, and affect normal Results Laboratory and Microbiology Lab and Micro Result Laboratory Tests Test 08/23/24 14:32 White Blood Count 7.2 K/uL (4.8-10.8) Red Blood Count 2.83 MIL/uL (4.50-6.20) L Hemoglobin 8.0 g/dL (14.0-18.0) L Hematocrit 26.6 % (42-54) L Mean Corpuscular Volume 94.0 fL (79-99) Mean Corpuscular Hemoglobin 28.3 pg (27.0-33.0) Mean Corpuscular Hemoglobin Concent 30.1 g/dL (32.0-36.0) L Red Cell Distribution Width 19.6 % (11.0-15.5) H Platelet Count 210 K/uL (130-400) Mean Platelet Volume 9.2 fL (7.5-10.5) Immature Granulocyte % (Auto) 0.4 % (0-1) Neutrophils (%) (Auto) 76.4 % (40.0-77.0) Lymphocytes (%) (Auto) 14.1 % (21.0-51.0) L Monocytes (%) (Auto) 6.4 % (3.0-13.0) Eosinophils (%) (Auto) 2.4 % (0.0-8.0) Basophils (%) (Auto) 0.3 % (0.0-5.0) Neutrophils # (Auto) 5.5 K/uL (1.8-7.7) Lymphocytes # (Auto) 1.0 K/uL (1.0-4.8) Monocytes # (Auto) 0.5 K/uL (0.1-1.0) Eosinophils # (Auto) 0.17 K/uL (0.00-0.70) Basophils # (Auto) 0.02 K/uL (0.00-0.20) Absolute Immature Granulocyte (auto 0.03 K/uL (0-1) Nucleated Red Blood Cells 0.0 % (0.0-0.19) Red Blood Cell Morphology See comments Prothrombin Time 12.9 SEC (9.6-11.6) H Prothromb Time International Ratio 1.24 (0.85-1.15) H Activated Partial Thromboplast Time 30.4 SEC (26.3-35.5) Sodium Level 140 mmol/L (136-145) Potassium Level 4.5 mmol/L (3.5-5.1) Chloride Level 107 mmol/L (101-111) Carbon Dioxide Level 26 mmol/L (21-32) Blood Urea Nitrogen 12 mg/dL (7-18) Creatinine 1.0 mg/dL (0.5-1.3) Glomerular Filtration Rate Calc 79 mL/min (>90) Random Glucose 85 mg/dL (70-105) Total Calcium 8.2 mg/dL (8.5-10.1) L Troponin I High Sensitivity 8 ng/L (4-75) Labs Reviewed?: Yes MDM MDM: Differential diagnosis: GI bleed, anemia Rationale: 74-year-old male presents to the emergency department due to generalized weakness. Daughter reports patient had just been admitted and received 4 units of blood due to his anemia. Patient was recently released from [employer], he states he was receiving 2 units of blood every 10 days for the last two months he was there. Last seen patient was admitted he was referred with GI, had endoscopy performed and is pending results. Patient denies any current pain, states he noticed his stool getting little bit darker. PMHx AFib, HTN, DM Per physical examination patient is in no acute distress, nontoxic appearing, normal color does not appear pale. Labs obtained indicate anemia with hemoglobin of 8, BNP within normal limits, PT and INR mildly elevated. The patient refused digital rectal exam for stool occult. Vitals stable during ED course. Daughter was educated on findings, diagnosis, decision for admission. Patient refused stool occult and admission. Daughter stated she would take her father home and follow up with GI August 27, 2024. Patient and daughter were educated on return to the ED if any worsening symptoms. Advised to follow up with PCP. Patient and daughter verbalized understanding. Patient stable for discharge. There are no social concerns with this patient. I independently interpreted the test that were performed, results were reviewed by me and considered findings on radiology if ordered. Medical management and examination interpretation discussions were had by me with other qualified healthcare professionals as indicated for the patient's care. ED Course Orders Procedure Category Date Status Time Cbc With Differential LAB 08/23/24 Complete 14:15 Basic Metabolic Panel LAB 08/23/24 Complete 14:15 Troponin I High LAB 08/23/24 Complete Sensitivity 14:15 12 Lead Ekg Tracing- EKG 08/23/24 Transmitted Technical 14:15 Pt And Ptt LAB 08/23/24 Complete 14:15 Vital Signs Date Time Temp Pulse Resp B/P (MAP) Pulse Ox O2 Delivery O2 Flow Rate FiO2 08/23/24 16:40 98.1 67 18 145/60 100 Room Air* 0 21 08/23/24 14:55 70 18 140/59 100 Room Air* 0 21 08/23/24 13:23 97.3 69 16 141/70 100 Room Air 0 DX & DISP Disposition: Discharge Departure Impression: Primary Impression: Wellness examination Additional Impression: Anemia Condition: Stable Additional Instructions: Discharge home. Rest. Follow up with primary care DrArie in 24 hours. Return to the ER for any acute changes or worsening symptoms. If any medications were prescribed take as directed. Okay to continue home medications unless otherwise discussed during your visit in the emergency room today. Patient was also advised to follow-up with primary care physician in 1 to 2 days for continued monitoring. Referrals: DILLON GUILLEN DO (PCP) I performed the substantive portion of the visit. I have reviewed and personally made and approve the management plan that is documented in the notes by myself or the MAGO. I acknowledge full responsibility for the patient's management plan. RAMBO PÉREZ August 23, 2024 16:29
[2024-08-23 16:40] VITALS: BP 145/60; PULSE 67; RESP 18; TEMP 98; O2SAT 100
--- NOTE | 2024-08-24 13:04 | EKG ---
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
== END 2024-08-23 17:06 | disposition home or self-care (01) ==
LOC: EDH 12:52
DX: D64.9 Anemia, unspecified (principal); E11.9 Type 2 diabetes mellitus without complications; G80.9 Cerebral palsy, unspecified; I10 Essential (primary) hypertension; I48.91 Unspecified atrial fibrillation; Z79.899 Other long term (current) drug therapy; Z88.5 Allergy status to narcotic agent; Z95.810 Presence of automatic (implantable) cardiac defibrillator
CPT/HCPCS: 36415; 80048; 84484; 85025; 85610; 85730; 93005; 99284